=== PATIENT | male | born 1955 | race Hispanic/Latino ===

== ENCOUNTER 2018-08-03 21:47 | Inpatient (IN) | payer SELFPAY ==
[2018-08-03 23:46] LABS: Basophils % (Auto) 0.5 % (0.0-1.8); Eosinophils % (Auto) 1.2 % (0.0-4.3); Hematocrit 40.1 % (35.5-45.6); Hemoglobin 14.1 gm/dl (11.8-15.2); Lymphocytes % (Auto) 29.1 % (13.4-35.0); Mean Corpuscular HGB Conc 35 % (32-34); Mean Corpuscular Hemoglobin 37 pg (28-32); Mean Corpuscular Volume 104 fl (84-94); Monocytes # (Auto) 0.3 K/mm3 (0.0-0.8); Red Blood Count 3.86 M/mm3 (3.65-5.03); Red Cell Distribution Width 17.8 % (13.2-15.2)
[2018-08-03 23:48] LABS: Platelet Count 44 K/mm3 (140-440)
[2018-08-04 00:04] LABS: INR 1.73 (0.87-1.13); Partial Thromboplastin Time 36.2 Sec. (24.2-36.6)
[2018-08-04 00:09] LABS: Alanine Aminotransferase 44 units/L (7-56); Albumin 3.3 g/dL (3.9-5); BUN/Creatinine Ratio 9; Blood Urea Nitrogen 9 mg/dL (9-20); Calcium 7.9 mg/dL (8.4-10.2); Hemolysis Index 8
[2018-08-04] MEDS ORDERED: ZOFRAN IV ONE (07:08)
[2018-08-04] MEDS ORDERED: MORPHINE IV ONE (07:08)
[2018-08-04] MEDS ORDERED: VANCOMYCIN/NS 1 GM/250 ML 1 GM/250 ML BAG IV ONE (07:08)
[2018-08-04] MEDS ORDERED: PROVENTIL IH ONE (07:09)
[2018-08-04] MEDS ORDERED: NACL 0.9% 1000 ML 1,000 ML IV ONE (07:09)
--- NOTE | 2018-08-04 07:14 | Emergency Department Report ---
ED Extremity Problem HPI - General Chief complaint: Extremity Injury, Lower Stated complaint: SWOLLEN LT LEG Time Seen by Provider: 08/04/18 07:00 Source: patient Mode of arrival: Ambulatory Limitations: No Limitations - History of Present Illness Initial comments: Patient is 63 years old male with history of hypertension, borderline diabetes, COPD and GERD. Patient is also a heavy smoker. Patient presented to the ER complaining of left leg pain and swelling from mid leg down to the foot. Patient stated that he have the swelling and the taking the collar for approximately one year now but for the last 5 days the swelling became more and became more red and warm to touch and the pain is getting worse. Patient denied any weakness or numbness or tingling sensation. Patient also denied any fever, nausea or vomiting. MD Complaint: extremity pain, extremity swelling Severity scale (0 -10): 10 - Related Data Home Medications Medication Instructions Recorded Confirmed Last Taken Eliquis 15 mg PO BID 08/03/18 08/03/18 Unknown Gabapentin 600 mg PO BID 08/03/18 08/03/18 Unknown HCTZ 25 mg PO DAILY 08/03/18 08/03/18 Unknown Tylenol /Codeine # 3 tab 1 tab PO BID PRN 08/03/18 08/03/18 Unknown Allergies Allergy/AdvReac Type Severity Reaction Status Date / Time aspirin Allergy Hives Verified 08/03/18 23:26 Penicillins Allergy Itching Verified 08/03/18 23:26 ED Review of Systems ROS: Stated complaint: SWOLLEN LT LEG Other details as noted in HPI Comment: All other systems reviewed and negative Constitutional: denies: chills, fever Respiratory: cough, shortness of breath, wheezing. denies: orthopnea, SOB with exertion, SOB at rest, stridor Cardiovascular: denies: chest pain, palpitations Gastrointestinal: denies: abdominal pain, nausea, vomiting, diarrhea, constipation, hematemesis, melena, hematochezia Musculoskeletal: denies: back pain Skin: denies: rash, lesions, change in color, change in hair/nails, pruritus Neurological: denies: headache, weakness, numbness, paresthesias, confusion, abnormal gait, vertigo ED Past Medical Hx - Past Medical History Hx Hypertension: Yes Hx GERD: Yes Hx Arthritis: Yes Hx COPD: Yes Additional medical history: Chronic Cellulitis left lower leg - Surgical History Past Surgical History?: No - Social History Smoking Status: Current Every Day Smoker Substance Use Type: None - Medications Home Medications: Home Medications Medication Instructions Recorded Confirmed Last Taken Type Eliquis 15 mg PO BID 08/03/18 08/03/18 Unknown History Gabapentin 600 mg PO BID 08/03/18 08/03/18 Unknown History HCTZ 25 mg PO DAILY 08/03/18 08/03/18 Unknown History Tylenol /Codeine # 3 tab 1 tab PO BID PRN 08/03/18 08/03/18 Unknown History ED Physical Exam - General Limitations: No Limitations General appearance: alert, in no apparent distress - Head Head exam: Present: atraumatic, normocephalic, normal inspection - Eye Eye exam: Present: normal appearance, PERRL - ENT ENT exam: Present: normal exam, normal orophraynx, mucous membranes moist - Neck Neck exam: Present: normal inspection, full ROM. Absent: tenderness, meningismus, lymphadenopathy, thyromegaly - Respiratory Respiratory exam: Present: wheezes, rhonchi. Absent: respiratory distress, rales, stridor, accessory muscle use, decreased breath sounds, prolonged expiratory - Cardiovascular Cardiovascular Exam: Present: regular rate, normal rhythm, normal heart sounds - GI/Abdominal GI/Abdominal exam: Present: soft, normal bowel sounds. Absent: distended, tenderness, guarding, rebound, rigid - Expanded Lower Extremity Exam Left Hip exam: Present: normal inspection, full ROM Upper Leg exam: Present: normal inspection, full ROM Lower Leg exam: Present: tenderness, swelling, erythema. Absent: laceration, ecchymosis, deformity, crepidus, dislocation, palpable cord, Ji's sign Ankle exam: Present: tenderness, swelling, erythema Foot/Toe exam: Present: tenderness, swelling, erythema Neuro vascular tendon exam: Present: pulse deficit (decrease popliteal, tibialis posterior and dorsalis pedis pulses), abnormal cap refill ED Course Vital Signs 08/03/18 08/04/18 08/04/18 23:17 06:21 07:10 Temperature 98.7 F 98.8 F 98.6 F Pulse Rate 69 70 74 Pulse Rate [ Anterior Bilateral Throughout] Respiratory 18 18 18 Rate Respiratory Rate [Anterior Bilateral Throughout] Blood Pressure 117/48 Blood Pressure 125/54 115/56 [Left] O2 Sat by Pulse 97 98 97 Oximetry 09/08/04/18 08/04/18 08:03 08:35 08:49 Temperature Pulse Rate Pulse Rate [ 72 88 Anterior Bilateral Throughout] Respiratory Rate Respiratory 20 20 Rate [Anterior Bilateral Throughout] Blood Pressure Blood Pressure [Left] O2 Sat by Pulse 94 Oximetry 08/04/18 09:00 Temperature 98.9 F Pulse Rate Pulse Rate [ Anterior Bilateral Throughout] Respiratory Rate Respiratory Rate [Anterior Bilateral Throughout] Blood Pressure Blood Pressure [Left] O2 Sat by Pulse Oximetry ED Medical Decision Making - Lab Data Result diagrams: 08/03/18 23:35 08/03/18 23:35 - Radiology Data Radiology results: report reviewed LLE VENOUS DUPLEX COMPLETED. VAS LAB PRELIMINARY REPORT; NO EVIDENCE OF DVT NOTED IN VESSELS/SEGMENTS EXAMINED. PER MD REQUEST, NOTED FLOW IN DST CREATIVE ENGAGEMENT DIRECTOR, PERONEAL ART'.S. PHYSICIANS REPORT TO FOLLOW...(RSK) - Medical Decision Making I discussed the patient is Dr. Junior , advised to admit the patient to Dr. Abraham. Critical Care Time: Yes Critical care time in (mins) excluding proc time.: 30 Critical care attestation.: If time is entered above; I have spent that time in minutes in the direct care of this critically ill patient, excluding procedure time. ED Disposition Clinical Impression: Left leg cellulitis, Hypokalemia Disposition: OP ADMIT IP TO THIS HOSP Is pt being admited?: Yes Condition: Stable Referrals: PRIMARY CARE, [Primary Care Provider] - 3-5 Days
--- NOTE | 2018-08-04 11:20 | History and Physical Report ---
History of Present Illness Date of examination: 08/04/18 Date of admission: 08/04/18 Chief complaint: Left lower extremity swelling redness and tenderness History of present illness: Very pleasant 63-year-old male patient with significant past medical history of lower extremity DVT, COPD, hypertension, ongoing tobacco use, on anticoagulation for old DVT presented to the emergency room with left lower extremity swelling and redness tenderness for the last 34 months worse since last 5 days Eyes any fever, no nausea vomiting abdominal pain Denies trauma Past History Past Medical History: COPD, DVT (history of DVT), GERD, hypertension, other ( chronic cellulitis left lower extremity) Past Surgical History: No surgical history Social history: lives with family, smoking (half to one packet per day for many years), alcohol abuse (occasional alcohol use), other (denies recreational drug use). denies: prescription drug abuse Family history: hypertension Medications and Allergies Allergies Allergy/AdvReac Type Severity Reaction Status Date / Time aspirin Allergy Hives Verified 08/03/18 23:26 Penicillins Allergy Itching Verified 08/03/18 23:26 Home Medications Medication Instructions Recorded Confirmed Last Taken Type Eliquis 15 mg PO BID 08/03/18 08/03/18 Unknown History Gabapentin 600 mg PO BID 08/03/18 08/03/18 Unknown History HCTZ 25 mg PO DAILY 08/03/18 08/03/18 Unknown History Tylenol /Codeine # 3 tab 1 tab PO BID PRN 08/03/18 08/03/18 Unknown History Active Meds: Active Medications Potassium Chloride (Kcl 10meq/100ml) 10 meq in 100 mls @ 100 mls/hr IV Q1H PARUL Stop: 08/04/18 12:59 Sodium Chloride (Nacl 0.9% 1000 Ml) 1,000 mls @ 100 mls/hr IV DIRECT PARUL Vancomycin HCl (Vancomycin/Ns 1 Gm/250 Ml) 1 gm in 250 mls @ 166.667 mls/hr IV Q12H PARUL Piperacillin Sod/Tazobactam Sod (Zosyn/Ns 4.5gm/100ml) 4.5 gm in 100 mls @ 200 mls/hr IV Q8HR PARUL; Protocol Review of Systems Constitutional: no weight loss, no weight gain Ears, nose, mouth and throat: no nasal congestion, no nasal discharge Cardiovascular: no chest pain, no orthopnea, no palpitations Respiratory: no cough, no shortness of breath Genitourinary Male: no dysuria, no hematuria Musculoskeletal: other (mellitus left lower extremity, redness and swelling) Integumentary: color changes, no rash, no lesions Neurological: no weakness, no tingling, no seizures Psychiatric: no anxiety, no depression Endocrine: no cold intolerance, no heat intolerance, no polydipsia, no polyuria Hematologic/Lymphatic: no easy bruising, no easy bleeding Allergic/Immunologic: no urticaria, no allergic rhinitis Exam - Constitutional Vitals: Temp Pulse Resp BP Pulse Ox 98.9 F 88 20 95/35 93 08/04/18 09:00 08/04/18 08:35 08/04/18 08:35 08/04/18 10:00 08/04/18 10:00 General appearance: Present: no acute distress, well-nourished - EENT Eyes: Present: PERRL, EOM intact - Neck Neck: Present: supple, normal ROM - Respiratory Respiratory effort: normal Respiratory: negative: rales, rhonchi, wheezing - Cardiovascular Rhythm: regular Heart Sounds: Present: S1 & S2 - Extremities Extremities: no ischemia, No edema Extremity abnormal: erythema (left lower extremity), tenderness (left lower extremity), other (swelling) - Abdominal General gastrointestinal: Present: soft, non-tender, non-distended, normal bowel sounds - Integumentary Integumentary: Present: clear, warm - Musculoskeletal Musculoskeletal: strength equal bilaterally, generalized weakness - Psychiatric Psychiatric: appropriate mood/affect, cooperative - Neurologic Neurologic: CNII-XII intact, moves all extremities Results - Labs CBC & Chem 7: 08/06/18 04:34 08/06/18 04:34 Labs: Abnormal lab results 08/03/18 08/03/18 08/03/18 Range/Units 23:35 23:35 23:35 WBC 3.4 L (4.5-11.0) K/mm3 MCV 104 H (84-94) fl MCH 37 H (28-32) pg MCHC 35 H (32-34) % RDW 17.8 H (13.2-15.2) % Plt Count 44 L (140-440) K/mm3 [place] % (Auto) 8.0 H (0.0-7.3) % Lymph # 1.0 L (1.2-5.4) K/mm3 PT 20.8 H (12.2-14.9) Sec. INR 1.73 H (0.87-1.13) Potassium 2.9 L* (3.6-5.0) mmol/L Calcium 7.9 L (8.4-10.2) mg/dL Total Bilirubin 2.50 H (0.1-1.2) mg/dL AST 99 H (5-40) units/L Albumin 3.3 L (3.9-5) g/dL Assessment and Plan --Left lower extremity cellulitis; Elevate the limb, IV antibiotics Vanco and Levaquin Cultures, consider ID evaluation if needed --Severe hypokalemia; Replaced in the ER, check potassium levels and adjust as needed --Hypomagnesemia; replaced with magnesium sulfate --Severe thrombocytopenia; unknown etiology Closely monitor, no evidence of bleeding, consider hematology consult --Neutropenia; unknown etiology, closely monitor We'll consult hematology if needed --Coagulopathy; INR 1.73, patient reports he is on anticoagulation with the requests Closely monitor, watch for bleeding in the setting of thrombocytopenia and coagulopathy --Transaminitis; probably secondary to alcohol use Closely monitor, GI evaluation if needed --Possible alcoholic liver disease; with elevated transaminases and bilirubin Closely monitor --Chronic alcohol use; counseling done patient strongly advised to quit alcohol intake --Alcohol withdrawal symptoms; currently patient does not have withdrawal symptoms, closely monitor Initiate CIWA protocol as needed --Moderate hypoalbuminemia; moderate malnutrition Nutrition supplements and supportive care, nutrition consult if needed --DVT prophylaxis; no pharmacologic anticoagulation in view of severe thrombocytopenia, SCDs Closely monitor the patient and adjust management as needed Plan of care is reviewed with the patient and his nurse I spent total 35 minutes coordinating patient care -
[2018-08-04] MEDS: KCL 10MEQ/100ML 10 MEQ/100 ML BAG IV SCH ×2 (11:24→13:34)
[2018-08-04 11:38] LABS: Hematocrit 33.7 % (35.5-45.6); Hemoglobin 11.9 gm/dl (11.8-15.2); Mean Corpuscular HGB Conc 35 % (32-34); Mean Corpuscular Hemoglobin 37 pg (28-32); Mean Corpuscular Volume 104 fl (84-94); Platelet Count 35 K/mm3 (140-440); Red Blood Count 3.25 M/mm3 (3.65-5.03); Red Cell Distribution Width 17.5 % (13.2-15.2)
[2018-08-04] MEDS ORDERED: VANCOMYCIN/NS 1 GM/250 ML 1 GM/250 ML BAG IV SCH (12:00)
[2018-08-04 12:17] LABS: Total Cells Counted 100
[2018-08-04 12:18] LABS: Basophils % (Manual) 0 % (0.0-1.8); Eosinophils % (Manual) 0 % (0.0-4.3)
[2018-08-04 12:19] LABS: Anisocytosis Few; Platelet Estimate Appears Decreased
[2018-08-04 12:21] LABS: Poikilocytosis Few
[2018-08-04] MEDS ORDERED: ZOSYN/NS 4.5GM/100ML 4.5 GM/100 ML VIAL IV SCH (14:00)
[2018-08-04] MEDS ORDERED: VANCOMYCIN 1,500 MG in NACL 0.9% 500 ML 500 ML IV ONE (16:00)
[2018-08-04] MEDS ORDERED: ATIVAN IV PRN (17:46)
[2018-08-04 18:25] LABS: BUN/Creatinine Ratio 14; Blood Urea Nitrogen 11 mg/dL (9-20); Calcium 7.5 mg/dL (8.4-10.2); Hemolysis Index 5
[2018-08-04] MEDS: CLEOCIN PO SCH ×2 (18:30→21:22)
[2018-08-04] MEDS: K-DUR PO SCH (21:20)
[2018-08-05] MEDS: K-DUR PO SCH (00:24)
[2018-08-05] MEDS: VANCOMYCIN 1,250 MG in NACL 0.9% 250ML 250 ML IV SCH ×2 (03:55→17:17)
[2018-08-05 06:05] LABS: Mean Corpuscular HGB Conc 34 % (32-34); Mean Corpuscular Hemoglobin 36 pg (28-32); Mean Corpuscular Volume 106 fl (84-94); Red Blood Count 3.31 M/mm3 (3.65-5.03); Red Cell Distribution Width 18.1 % (13.2-15.2)
[2018-08-05 06:09] LABS: Platelet Count 36 K/mm3 (140-440)
[2018-08-05 06:29] LABS: BUN/Creatinine Ratio 11; Blood Urea Nitrogen 9 mg/dL (9-20); Calcium 7.1 mg/dL (8.4-10.2); Hemolysis Index 3
[2018-08-05 07:44] LABS: Basophils % (Manual) 0 % (0.0-1.8); Eosinophils % (Manual) 0 % (0.0-4.3); Total Cells Counted 100
[2018-08-05 07:45] LABS: Platelet Estimate Appears Decreased
[2018-08-05 07:46] LABS: Anisocytosis Few; Macrocytosis Few; Ovalocytes Few; Poikilocytosis Few
--- NOTE | 2018-08-05 07:50 | Progress Note ---
Assessment and Plan Assessment and plan: --Severe thrombocytopenia; Probably alcohol related Closely monitor, no evidence of bleeding, consult oncall hematology ---Leukopenia; unknown etiology, closely monitor We'll consult hematology,neutrophil count pending --Left lower extremity cellulitis; Elevate the limb, IV antibiotics Vanco and Levaquin Cultures, consider ID evaluation if needed --Severe hypokalemia; Replaced in the ER, check potassium levels and adjust as needed --Hypomagnesemia; replaced with magnesium sulfate --Coagulopathy; INR 1.73, patient reports he is on anticoagulation with Eliquis Probably due to alcohol liver disease. --Transaminitis; probably secondary to alcohol use Closely monitor, GI evaluation if needed --Chronic alcohol use; counseling done patient strongly advised to quit alcohol intake --Alcohol withdrawal symptoms; currently patient does not have withdrawal symptoms, closely monitor Initiate CIWA protocol as needed --Moderate hypoalbuminemia; moderate malnutrition Nutrition supplements and supportive care, nutrition consult if needed --DVT prophylaxis; no pharmacologic anticoagulation in view of severe thrombocytopenia, SCDs Closely monitor the patient and adjust management as needed Plan of care is reviewed with the patient and his nurse I spent total 15 minutes coordinating patient care - History Interval history: Patient seen and examined medical records reviewed Feels slightly better Complaints of lower extremity pain Alert awake oriented 3 Vital signs reviewed Hospitalist Physical - Constitutional Vitals: Temp Pulse Resp BP Pulse Ox 99.0 F 74 18 124/66 93 08/05/18 05:28 08/05/18 05:28 08/05/18 05:28 08/05/18 05:28 08/05/18 05:28 General appearance: Present: no acute distress, well-nourished - EENT Eyes: Present: PERRL, EOM intact - Neck Neck: Present: supple, normal ROM - Respiratory Respiratory effort: normal Respiratory: bilateral: diminished, negative: rales, rhonchi, wheezing - Cardiovascular Rhythm: regular Heart Sounds: Present: S1 & S2 - Extremities Extremities: no ischemia, No edema - Abdominal General gastrointestinal: soft, non-tender, non-distended, normal bowel sounds - Integumentary Integumentary: Present: clear, warm - Psychiatric Psychiatric: appropriate mood/affect, cooperative - Neurologic Neurologic: CNII-XII intact, moves all extremities Results - Labs CBC & Chem 7: 08/06/18 04:34 08/06/18 04:34 Labs: Laboratory Last Values WBC 1.7 K/mm3 (4.5-11.0) L* 08/05/18 04:29 RBC 3.31 M/mm3 (3.65-5.03) L 08/05/18 04:29 Hgb 12.0 gm/dl (11.8-15.2) 08/05/18 04:29 Hct 35.0 % (35.5-45.6) L 08/05/18 04:29 MCV 106 fl (84-94) H 08/05/18 04:29 MCH 36 pg (28-32) H 08/05/18 04:29 MCHC 34 % (32-34) 08/05/18 04:29 RDW 18.1 % (13.2-15.2) H 08/05/18 04:29 Plt Count 36 K/mm3 (140-440) L 08/05/18 04:29 Lymph % (Auto) 29.1 % (13.4-35.0) 08/03/18 23:35 Piatt % (Auto) 8.0 % (0.0-7.3) H 08/03/18 23:35 Eos % (Auto) 1.2 % (0.0-4.3) 08/03/18 23:35 Baso % (Auto) 0.5 % (0.0-1.8) 08/03/18 23:35 Lymph # 1.0 K/mm3 (1.2-5.4) L 08/03/18 23:35 Piatt # 0.3 K/mm3 (0.0-0.8) 08/03/18 23:35 Eos # 0.0 K/mm3 (0.0-0.4) 08/03/18 23:35 Baso # 0.0 K/mm3 (0.0-0.1) 08/03/18 23:35 Add Manual Diff Complete 08/04/18 11:25 Total Counted 100 08/04/18 11:25 Seg Neutrophils % Domestic Cleaner 08/05/18 04:29 Seg Neuts % (Manual) 65.0 % (40.0-70.0) 08/04/18 11:25 Band Neutrophils % 0 % 08/04/18 11:25 Lymphocytes % (Manual) 26.0 % (13.4-35.0) 08/04/18 11:25 Reactive Lymphs % (Man) 0 % 08/04/18 11:25 Monocytes % (Manual) 9.0 % (0.0-7.3) H 08/04/18 11:25 Eosinophils % (Manual) 0 % (0.0-4.3) 08/04/18 11:25 Basophils % (Manual) 0 % (0.0-1.8) 08/04/18 11:25 Metamyelocytes % 0 % 08/04/18 11:25 Myelocytes % 0 % 08/04/18 11:25 Promyelocytes % 0 % 08/04/18 11:25 Blast Cells % 0 % 08/04/18 11:25 Nucleated RBC % Not Reportable 08/04/18 11:25 Seg Neutrophils # 2.1 K/mm3 (1.8-7.7) 08/03/18 23:35 Seg Neutrophils # Man 1.4 K/mm3 (1.8-7.7) L 08/04/18 11:25 Band Neutrophils # 0.0 K/mm3 08/04/18 11:25 Lymphocytes # (Manual) 0.5 K/mm3 (1.2-5.4) L 08/04/18 11:25 Abs React Lymphs (Man) 0.0 K/mm3 08/04/18 11:25 Monocytes # (Manual) 0.2 K/mm3 (0.0-0.8) 08/04/18 11:25 Eosinophils # (Manual) 0.0 K/mm3 (0.0-0.4) 08/04/18 11:25 Basophils # (Manual) 0.0 K/mm3 (0.0-0.1) 08/04/18 11:25 Metamyelocytes # 0.0 K/mm3 08/04/18 11:25 Myelocytes # 0.0 K/mm3 08/04/18 11:25 Promyelocytes # 0.0 K/mm3 08/04/18 11:25 Blast Cells # 0.0 K/mm3 08/04/18 11:25 WBC Morphology Not Reportable 08/04/18 11:25 Hypersegmented Neuts Not Reportable 08/04/18 11:25 Hyposegmented Neuts Not Reportable 08/04/18 11:25 Hypogranular Neuts Not Reportable 08/04/18 11:25 Smudge Cells Not Reportable 08/04/18 11:25 Toxic Granulation Not Reportable 08/04/18 11:25 Toxic Vacuolation Not Reportable 08/04/18 11:25 Dohle Bodies Not Reportable 08/04/18 11:25 Pelger-Huet Anomaly Not Reportable 08/04/18 11:25 Mago Rods Not Reportable 08/04/18 11:25 Platelet Estimate Appears decreased 08/04/18 11:25 Clumped Platelets Not Reportable 08/04/18 11:25 Plt Clumps, EDTA Not Reportable 08/04/18 11:25 Large Platelets Not Reportable 08/04/18 11:25 Giant Platelets Not Reportable 08/04/18 11:25 Platelet Satelliting Not Reportable 08/04/18 11:25 Plt Morphology Comment Not Reportable 08/04/18 11:25 RBC Morphology Not Reportable 08/04/18 11:25 Dimorphic RBCs Not Reportable 08/04/18 11:25 Polychromasia Not Reportable 08/04/18 11:25 Hypochromasia Not Reportable 08/04/18 11:25 Poikilocytosis Few 08/04/18 11:25 Anisocytosis Few 08/04/18 11:25 Microcytosis Rare 08/04/18 11:25 Macrocytosis Not Reportable 08/04/18 11:25 Spherocytes Not Reportable 08/04/18 11:25 Pappenheimer Bodies Not Reportable 08/04/18 11:25 Sickle Cells Not Reportable 08/04/18 11:25 Target Cells Not Reportable 08/04/18 11:25 Tear Drop Cells Not Reportable 08/04/18 11:25 Ovalocytes Not Reportable 08/04/18 11:25 Helmet Cells Not Reportable 08/04/18 11:25 Azul-[place] Bodies Not Reportable 08/04/18 11:25 [place] Rings Not Reportable 08/04/18 11:25 Hussain Cells Not Reportable 08/04/18 11:25 Bite Cells Not Reportable 08/04/18 11:25 Crenated Cell Not Reportable 08/04/18 11:25 Elliptocytes Not Reportable 08/04/18 11:25 Acanthocytes (Spur) Not Reportable 08/04/18 11:25 Rouleaux Not Reportable 08/04/18 11:25 Hemoglobin C Crystals Not Reportable 08/04/18 11:25 Schistocytes Not Reportable 08/04/18 11:25 Malaria parasites Not Reportable 08/04/18 11:25 Ahmet Bodies Not Reportable 08/04/18 11:25 Hem Pathologist Commnt No 08/04/18 11:25 PT 20.8 Sec. (12.2-14.9) H 08/03/18 23:35 INR 1.73 (0.87-1.13) H 08/03/18 23:35 APTT 36.2 Sec. (24.2-36.6) 08/03/18 23:35 Sodium 137 mmol/L (137-145) 08/05/18 04:29 Potassium 3.9 mmol/L (3.6-5.0) D 08/05/18 04:29 Chloride 106.0 mmol/L (98-107) 08/05/18 04:29 Carbon Dioxide 21 mmol/L (22-30) L 08/05/18 04:29 Anion Gap 14 mmol/L 08/05/18 04:29 BUN 9 mg/dL (9-20) 08/05/18 04:29 Creatinine 0.8 mg/dL (0.8-1.5) 08/05/18 04:29 Estimated GFR > 60 ml/min 08/05/18 04:29 BUN/Creatinine Ratio 11 % 08/05/18 04:29 Glucose 80 mg/dL (75-100) 08/05/18 04:29 Calcium 7.1 mg/dL (8.4-10.2) L 08/05/18 04:29 Phosphorus 2.10 mg/dL (2.5-4.5) L 08/05/18 04:29 Magnesium 1.60 mg/dL (1.7-2.3) L 08/05/18 04:29 Total Bilirubin 2.50 mg/dL (0.1-1.2) H 08/03/18 23:35 AST 99 units/L (5-40) H 08/03/18 23:35 ALT 44 units/L (7-56) 08/03/18 23:35 Alkaline Phosphatase 125 units/L (35-129) 08/03/18 23:35 Total Protein 7.2 g/dL (6.3-8.2) 08/03/18 23:35 Albumin 3.3 g/dL (3.9-5) L 08/03/18 23:35 Albumin/Globulin Ratio 0.8 % 08/03/18 23:35
[2018-08-05] MEDS: NACL 0.9% 1000 ML 1,000 ML IV SCH ×2 (07:53→17:26)
[2018-08-05] MEDS ORDERED: MAGNESIUM SULFATE 2GM/50ML 2 GM/50 ML BAG IV ONE (09:00)
[2018-08-05] MEDS: VITAMIN B-1 PO SCH (10:00)
[2018-08-05] MEDS: FOLVITE PO SCH (10:01)
[2018-08-05] MEDS: CLEOCIN PO SCH ×4 (10:01→21:59)
[2018-08-05] MEDS: PERCOCET 5/325 PO PRN (11:05)
--- NOTE | 2018-08-05 13:13 | Hem/Onc Consultation ---
History of Present Illness - Reason for Consult Consult date: 08/05/18 - History of Present Illness Patient states he has cardiac history requiring anticoagulants in longterm. He was in longterm for 7 years and was on anticoagulants for 4 years. His discharge papers donot mention DVT or Afib. Has history of alcoholism and possible cirrhosis with low blood counts. No history of bleeding. He deniess any history of DVt or PE. Past History Past Medical History: COPD, DVT (history of DVT), GERD, hypertension, other ( chronic cellulitis left lower extremity) Past Surgical History: No surgical history Social history: lives with family, smoking (half to one packet per day for many years), alcohol abuse (occasional alcohol use), other (denies recreational drug use). denies: prescription drug abuse Family history: hypertension Medications and Allergies Allergies Allergy/AdvReac Type Severity Reaction Status Date / Time aspirin Allergy Hives Verified 08/03/18 23:26 Penicillins Allergy Itching Verified 08/03/18 23:26 Home Medications Medication Instructions Recorded Confirmed Last Taken Type Eliquis 15 mg PO BID 08/03/18 08/03/18 Unknown History Gabapentin 600 mg PO BID 08/03/18 08/03/18 Unknown History HCTZ 25 mg PO DAILY 08/03/18 08/03/18 Unknown History Tylenol /Codeine # 3 tab 1 tab PO BID PRN 08/03/18 08/03/18 Unknown History Active Meds: Active Medications Clindamycin HCl (Cleocin) 300 mg PO QID REPLACED BY [facility] Last Admin: 08/05/18 10:01 Dose: 300 mg Folic Acid (Folvite) 1 mg PO QDAY REPLACED BY [facility] Last Admin: 08/05/18 10:01 Dose: 1 mg Sodium Chloride (Nacl 0.9% 1000 Ml) 1,000 mls @ 100 mls/hr IV DIRECT REPLACED BY [facility] Last Admin: 08/05/18 07:53 Dose: 100 mls/hr Vancomycin HCl 1,250 mg/ (Sodium Chloride) 275 mls @ 166.667 mls/hr IV Q12H REPLACED BY [facility] Last Admin: 08/05/18 03:55 Dose: 166.667 mls/hr Lorazepam (Ativan) 2 mg IV Q4H PRN PRN Reason: Agitation Oxycodone/Acetaminophen (Percocet 5/325) 1 tab PO Q6H PRN PRN Reason: Pain, Moderate (4-6) Last Admin: 08/05/18 11:05 Dose: 1 tab Thiamine HCl (Vitamin B-1) 100 mg PO QDAY PARUL Last Admin: 08/05/18 10:00 Dose: 100 mg Review of Systems All systems: negative Constitutional: fatigue Exam - Constitutional Vitals: Last Vital Signs Temp 99.0 F 08/05/18 05:28 Pulse 74 08/05/18 05:28 Resp 18 08/05/18 12:05 BP 124/66 08/05/18 05:28 Pulse Ox 93 08/05/18 05:28 - EENT Eyes: PERRL ENT: hearing intact Lymph node exam: negative cervical - Respiratory Respiratory: bilateral: CTA, diminished, rales, rhonchi, wheezing, other - Cardiovascular Rhythm: regular Heart Sounds: Present: S1 & S2 - Gastrointestinal General gastrointestinal: Present: soft Results - Labs lab Results: Laboratory Results - last 24 hr 08/04/18 08/05/18 08/05/18 17:59 04:29 04:29 WBC 1.7 L* RBC 3.31 L Hgb 12.0 Hct 35.0 L MCV 106 H MCH 36 H MCHC 34 RDW 18.1 H Plt Count 36 L Add Manual Diff Complete Total Counted 100 Seg Neutrophils % Group Work Program Aide Seg Neuts % (Manual) 66.0 Band Neutrophils % 0 Lymphocytes % (Manual) 28.0 Reactive Lymphs % (Man) 0 Monocytes % (Manual) 6.0 Eosinophils % (Manual) 0 Basophils % (Manual) 0 Metamyelocytes % 0 Myelocytes % 0 Promyelocytes % 0 Blast Cells % 0 Nucleated RBC % 1.0 H Seg Neutrophils # Man 1.1 L Band Neutrophils # 0.0 Lymphocytes # (Manual) 0.5 L Abs React Lymphs (Man) 0.0 Monocytes # (Manual) 0.1 Eosinophils # (Manual) 0.0 Basophils # (Manual) 0.0 Metamyelocytes # 0.0 Myelocytes # 0.0 Promyelocytes # 0.0 Blast Cells # 0.0 WBC Morphology Not Reportable Hypersegmented Neuts Not Reportable Hyposegmented Neuts Not Reportable Hypogranular Neuts Not Reportable Smudge Cells Not Reportable Toxic Granulation Not Reportable Toxic Vacuolation Not Reportable Dohle Bodies Not Reportable Pelger-Huet Anomaly Not Reportable Mago Rods Not Reportable Platelet Estimate Appears decreased Clumped Platelets Not Reportable Plt Clumps, EDTA Not Reportable Large Platelets Not Reportable Giant Platelets Not Reportable Platelet Satelliting Not Reportable Plt Morphology Comment Not Reportable RBC Morphology Not Reportable Dimorphic RBCs Not Reportable Polychromasia Not Reportable Hypochromasia Not Reportable Poikilocytosis Few Anisocytosis Few Microcytosis Rare Macrocytosis Few Spherocytes Not Reportable Pappenheimer Bodies Not Reportable Sickle Cells Not Reportable Target Cells Not Reportable Tear Drop Cells Not Reportable Ovalocytes Few Helmet Cells Not Reportable Azul-[place] Bodies Not Reportable [place] Rings Not Reportable [place] Cells Not Reportable Bite Cells Not Reportable Crenated Cell Not Reportable Elliptocytes Rare Acanthocytes (Spur) Not Reportable Rouleaux Not Reportable Hemoglobin C Crystals Not Reportable Schistocytes Not Reportable Malaria parasites Not Reportable Ahmet Bodies Not Reportable Hem Pathologist Commnt No Sodium 138 137 Potassium 3.1 L 3.9 D Chloride 104.5 106.0 Carbon Dioxide 24 21 L Anion Gap 13 14 BUN 11 9 Creatinine 0.8 0.8 Estimated GFR > 60 > 60 BUN/Creatinine Ratio 14 11 Glucose 92 80 Calcium 7.5 L 7.1 L Phosphorus 2.10 L Magnesium 1.60 L Assessment and Plan - Patient Problems (1) Left leg cellulitis Current Visit: Yes Status: Acute Plan to address problem: Would monitor his counts. Would refer cardiology for reason for eliquis ? Also requires GI for history of cirrhosis. He requires outpatient follow up. he agrees. Compliance stressed.
[2018-08-06] MEDS: VANCOMYCIN 1,250 MG in NACL 0.9% 250ML 250 ML IV SCH ×2 (04:10→18:16)
[2018-08-06] MEDS: NACL 0.9% 1000 ML 1,000 ML IV SCH ×2 (04:12→18:17)
[2018-08-06 05:25] LABS: Hematocrit 35.3 % (35.5-45.6); Hemoglobin 12.2 gm/dl (11.8-15.2); Mean Corpuscular HGB Conc 35 % (32-34); Mean Corpuscular Hemoglobin 36 pg (28-32); Mean Corpuscular Volume 105 fl (84-94); Red Blood Count 3.35 M/mm3 (3.65-5.03); Red Cell Distribution Width 18.4 % (13.2-15.2)
[2018-08-06 05:41] LABS: BUN/Creatinine Ratio 13; Blood Urea Nitrogen 8 mg/dL (9-20); Calcium 7.3 mg/dL (8.4-10.2); Hemolysis Index 22
[2018-08-06 05:51] LABS: Platelet Count 34 K/mm3 (140-440)
[2018-08-06 08:02] LABS: Basophils % (Manual) 0 % (0.0-1.8); Poikilocytosis 1+; Tear Drop Cells Few; Total Cells Counted 100
[2018-08-06 08:03] LABS: Platelet Estimate Consistent w Auto
[2018-08-06] MEDS: FOLVITE PO SCH (09:00)
[2018-08-06] MEDS: VITAMIN B-1 PO SCH (09:00)
[2018-08-06] MEDS: PERCOCET 5/325 PO PRN ×2 (09:00→22:15)
[2018-08-06] MEDS: CLEOCIN PO SCH ×4 (09:00→22:16)
--- NOTE | 2018-08-06 09:10 | Hem/Onc Progress Note ---
Assessment and Plan Platelets are low. Patient is high risk for bleeding. Agree with stopping anticoagulants. May need cardiology evaluation since patient states he had some issues with the heart that he thinks he was on anticoagulants for Neutropenia secondary to infection and liver disease. Continue to watch. Continue antibiotics. Subjective Date of service: 08/06/18 Interval history: Patient feels fair. Denies any active bleeding. Objective - Constitutional Vitals: Last Vital Signs Temp 97.7 F 08/06/18 06:18 Pulse 66 08/06/18 08:54 Resp 16 08/06/18 06:18 BP 134/73 08/06/18 06:18 Pulse Ox 96 08/06/18 06:18 General appearance: no acute distress Performance status: 3-limited selfcare - Neck Neck: supple - Respiratory Respiratory effort: Positive: normal Respiratory: bilateral: CTA - Cardiovascular Rhythm: regular Extremities: abnormal (left-sided cellulitis) - Labs Lab Results: Laboratory Results - last 24 hr 08/05/18 08/06/18 08/06/18 20:59 04:34 04:34 WBC 1.6 L* RBC 3.35 L Hgb 12.2 Hct 35.3 L MCV 105 H MCH 36 H MCHC 35 H RDW 18.4 H Plt Count 34 L Add Manual Diff Complete Total Counted 100 Seg Neutrophils % Director Of Residential Services Seg Neuts % (Manual) 38.0 L Band Neutrophils % 0 Lymphocytes % (Manual) 48.0 H Reactive Lymphs % (Man) 0 Monocytes % (Manual) 6.0 Eosinophils % (Manual) 8.0 H Basophils % (Manual) 0 Metamyelocytes % 0 Myelocytes % 0 Promyelocytes % 0 Blast Cells % 0 Nucleated RBC % Not Reportable Seg Neutrophils # Man 0.6 L Band Neutrophils # 0.0 Lymphocytes # (Manual) 0.8 L Abs React Lymphs (Man) 0.0 Monocytes # (Manual) 0.1 Eosinophils # (Manual) 0.1 Basophils # (Manual) 0.0 Metamyelocytes # 0.0 Myelocytes # 0.0 Promyelocytes # 0.0 Blast Cells # 0.0 WBC Morphology Not Reportable Hypersegmented Neuts Not Reportable Hyposegmented Neuts Not Reportable Hypogranular Neuts Not Reportable Smudge Cells Not Reportable Toxic Granulation Not Reportable Toxic Vacuolation Not Reportable Dohle Bodies Not Reportable Pelger-Huet Anomaly Not Reportable Mago Rods Not Reportable Platelet Estimate Consistent w auto Clumped Platelets Not Reportable Plt Clumps, EDTA Not Reportable Large Platelets Not Reportable Giant Platelets Not Reportable Platelet Satelliting Not Reportable Plt Morphology Comment Not Reportable RBC Morphology Not Reportable Dimorphic RBCs Not Reportable Polychromasia Not Reportable Hypochromasia Not Reportable Poikilocytosis 1+ Anisocytosis Not Reportable Microcytosis Not Reportable Macrocytosis Not Reportable Spherocytes Not Reportable Pappenheimer Bodies Not Reportable Sickle Cells Not Reportable Target Cells Not Reportable Tear Drop Cells Few Ovalocytes Not Reportable Helmet Cells Not Reportable Azul-[place] Bodies Not Reportable [place] Rings Not Reportable [place] Cells Not Reportable Bite Cells Not Reportable Crenated Cell Not Reportable Elliptocytes Not Reportable Acanthocytes (Spur) Not Reportable Rouleaux Not Reportable Hemoglobin C Crystals Not Reportable Schistocytes Not Reportable Malaria parasites Not Reportable Ahmet Bodies Not Reportable Hem Pathologist Commnt No Sodium 138 Potassium 3.6 Chloride 109.6 H Carbon Dioxide 19 L Anion Gap 13 BUN 8 L Creatinine 0.6 L Estimated GFR > 60 BUN/Creatinine Ratio 13 Glucose 79 POC Glucose 93 Calcium 7.3 L
--- NOTE | 2018-08-06 14:30 | Vascular Lab Report ---
Left Lower Extremity Venous Duplex Study: Reason for Exam: Pain and swelling of the left lower extremity. Comments on the Right: A limited duplex study was done of the proximal veins of the right lower extremity. All veins visualized are freely compressible without evidence of internal echogenicity. Flow is spontaneous and phasic throughout. No evidence of acute or chronic thrombus is seen in any of the vessels visualized. Comments on the Left: All veins visualized are freely compressible without evidence of internal echogenicity. Flow is spontaneous and phasic throughout. No evidence of acute or chronic thrombus is seen in any of the vessels visualized. Left inguinal adenopathy is noted. Impression: No evidence of acute or chronic deep venous thrombosis in the left lower extremity. Left inguinal adenopathy is noted.
--- NOTE | 2018-08-06 17:27 | Progress Note ---
Assessment and Plan Assessment and plan: --Severe thrombocytopenia; Probably alcohol related Closely monitor, no evidence of bleeding, hematology evaluation noted and appreciated --Leukopenia; significant drop in WBC to 1.6 unknown etiology, closely monitor We'll consult hematology,neutrophil count pending neutropenia precautions --Left lower extremity cellulitis; Elevate the limb, IV antibiotics Vanco and Levaquin Cultures, consider ID evaluation if needed --Severe hypokalemia; corrected --Hypomagnesemia; replaced with magnesium sulfate --Hypophosphatemia; IV K-Phos, closely monitor levels --Coagulopathy; INR 1.73, hold Eliquis[unknown indication] In view of coagulopathy, severe thrombocytopenia --Transaminitis; probably secondary to alcohol use --Chronic alcohol use; counseling,advised to quit alcohol intake --Alcohol withdrawal symptoms; currently patient does not have withdrawal symptoms, closely monitor Initiate CIWA protocol as needed --Moderate hypoalbuminemia; moderate malnutrition Nutrition supplements and supportive care, nutrition consult if needed --DVT prophylaxis; no pharmacologic anticoagulation in view of severe thrombocytopenia, SCDs Closely monitor the patient and adjust management as needed Plan of care is reviewed with the patient and his nurse - History Interval history: Patient seen and examined medical records reviewed No new events reported by the nursing staff Significant drop in WBC, 1.6 Alert awake oriented 3 Vital signs reviewed Hospitalist Physical - Constitutional Vitals: Temp Pulse Resp BP Pulse Ox 97.8 F 58 L 16 137/77 97 08/06/18 13:23 08/06/18 13:23 08/06/18 13:23 08/06/18 13:23 08/06/18 13:23 General appearance: Present: no acute distress, well-nourished - EENT Eyes: Present: PERRL, EOM intact - Neck Neck: Present: supple, normal ROM - Respiratory Respiratory effort: normal Respiratory: bilateral: diminished, negative: rales, rhonchi, wheezing - Cardiovascular Rhythm: regular Heart Sounds: Present: S1 & S2 - Extremities Extremities: no ischemia, pulses intact, abnormal (cellulitis erythema and swelling) - Abdominal General gastrointestinal: soft, non-tender, non-distended, normal bowel sounds - Integumentary Integumentary: Present: clear, warm - Psychiatric Psychiatric: appropriate mood/affect, cooperative - Neurologic Neurologic: CNII-XII intact, moves all extremities Results - Labs CBC & Chem 7: 08/06/18 04:34 08/06/18 04:34 Labs: Laboratory Last Values WBC 1.6 K/mm3 (4.5-11.0) L* 08/06/18 04:34 RBC 3.35 M/mm3 (3.65-5.03) L 08/06/18 04:34 Hgb 12.2 gm/dl (11.8-15.2) 08/06/18 04:34 Hct 35.3 % (35.5-45.6) L 08/06/18 04:34 MCV 105 fl (84-94) H 08/06/18 04:34 MCH 36 pg (28-32) H 08/06/18 04:34 MCHC 35 % (32-34) H 08/06/18 04:34 RDW 18.4 % (13.2-15.2) H 08/06/18 04:34 Plt Count 34 K/mm3 (140-440) L 08/06/18 04:34 Lymph % (Auto) 29.1 % (13.4-35.0) 08/03/18 23:35 [place] % (Auto) 8.0 % (0.0-7.3) H 08/03/18 23:35 Eos % (Auto) 1.2 % (0.0-4.3) 08/03/18 23:35 Baso % (Auto) 0.5 % (0.0-1.8) 08/03/18 23:35 Lymph # 1.0 K/mm3 (1.2-5.4) L 08/03/18 23:35 [place] # 0.3 K/mm3 (0.0-0.8) 08/03/18 23:35 Eos # 0.0 K/mm3 (0.0-0.4) 08/03/18 23:35 Baso # 0.0 K/mm3 (0.0-0.1) 08/03/18 23:35 Add Manual Diff Complete 08/06/18 04:34 Total Counted 100 08/06/18 04:34 Seg Neutrophils % Shipping Clerk Crating 08/06/18 04:34 Seg Neuts % (Manual) 38.0 % (40.0-70.0) L 08/06/18 04:34 Band Neutrophils % 0 % 08/06/18 04:34 Lymphocytes % (Manual) 48.0 % (13.4-35.0) H 08/06/18 04:34 Reactive Lymphs % (Man) 0 % 08/06/18 04:34 Monocytes % (Manual) 6.0 % (0.0-7.3) 08/06/18 04:34 Eosinophils % (Manual) 8.0 % (0.0-4.3) H 08/06/18 04:34 Basophils % (Manual) 0 % (0.0-1.8) 08/06/18 04:34 Metamyelocytes % 0 % 08/06/18 04:34 Myelocytes % 0 % 08/06/18 04:34 Promyelocytes % 0 % 08/06/18 04:34 Blast Cells % 0 % 08/06/18 04:34 Nucleated RBC % Not Reportable 08/06/18 04:34 Seg Neutrophils # 2.1 K/mm3 (1.8-7.7) 08/03/18 23:35 Seg Neutrophils # Man 0.6 K/mm3 (1.8-7.7) L 08/06/18 04:34 Band Neutrophils # 0.0 K/mm3 08/06/18 04:34 Lymphocytes # (Manual) 0.8 K/mm3 (1.2-5.4) L 08/06/18 04:34 Abs React Lymphs (Man) 0.0 K/mm3 08/06/18 04:34 Monocytes # (Manual) 0.1 K/mm3 (0.0-0.8) 08/06/18 04:34 Eosinophils # (Manual) 0.1 K/mm3 (0.0-0.4) 08/06/18 04:34 Basophils # (Manual) 0.0 K/mm3 (0.0-0.1) 08/06/18 04:34 Metamyelocytes # 0.0 K/mm3 08/06/18 04:34 Myelocytes # 0.0 K/mm3 08/06/18 04:34 Promyelocytes # 0.0 K/mm3 08/06/18 04:34 Blast Cells # 0.0 K/mm3 08/06/18 04:34 WBC Morphology Not Reportable 08/06/18 04:34 Hypersegmented Neuts Not Reportable 08/06/18 04:34 Hyposegmented Neuts Not Reportable 08/06/18 04:34 Hypogranular Neuts Not Reportable 08/06/18 04:34 Smudge Cells Not Reportable 08/06/18 04:34 Toxic Granulation Not Reportable 08/06/18 04:34 Toxic Vacuolation Not Reportable 08/06/18 04:34 Dohle Bodies Not Reportable 08/06/18 04:34 Pelger-Huet Anomaly Not Reportable 08/06/18 04:34 Mago Rods Not Reportable 08/06/18 04:34 Platelet Estimate Consistent w auto 08/06/18 04:34 Clumped Platelets Not Reportable 08/06/18 04:34 Plt Clumps, EDTA Not Reportable 08/06/18 04:34 Large Platelets Not Reportable 08/06/18 04:34 Giant Platelets Not Reportable 08/06/18 04:34 Platelet Satelliting Not Reportable 08/06/18 04:34 Plt Morphology Comment Not Reportable 08/06/18 04:34 RBC Morphology Not Reportable 08/06/18 04:34 Dimorphic RBCs Not Reportable 08/06/18 04:34 Polychromasia Not Reportable 08/06/18 04:34 Hypochromasia Not Reportable 08/06/18 04:34 Poikilocytosis 1+ 08/06/18 04:34 Anisocytosis Not Reportable 08/06/18 04:34 Microcytosis Not Reportable 08/06/18 04:34 Macrocytosis Not Reportable 08/06/18 04:34 Spherocytes Not Reportable 08/06/18 04:34 Pappenheimer Bodies Not Reportable 08/06/18 04:34 Sickle Cells Not Reportable 08/06/18 04:34 Target Cells Not Reportable 08/06/18 04:34 Tear Drop Cells Few 08/06/18 04:34 Ovalocytes Not Reportable 08/06/18 04:34 Helmet Cells Not Reportable 08/06/18 04:34 Azul-[place] Bodies Not Reportable 08/06/18 04:34 [place] Rings Not Reportable 08/06/18 04:34 [place] Cells Not Reportable 08/06/18 04:34 Bite Cells Not Reportable 08/06/18 04:34 Crenated Cell Not Reportable 08/06/18 04:34 Elliptocytes Not Reportable 08/06/18 04:34 Acanthocytes (Spur) Not Reportable 08/06/18 04:34 Rouleaux Not Reportable 08/06/18 04:34 Hemoglobin C Crystals Not Reportable 08/06/18 04:34 Schistocytes Not Reportable 08/06/18 04:34 Malaria parasites Not Reportable 08/06/18 04:34 Ahmet Bodies Not Reportable 08/06/18 04:34 Hem Pathologist Commnt No 08/06/18 04:34 PT 20.8 Sec. (12.2-14.9) H 08/03/18 23:35 INR 1.73 (0.87-1.13) H 08/03/18 23:35 APTT 36.2 Sec. (24.2-36.6) 08/03/18 23:35 Sodium 138 mmol/L (137-145) 08/06/18 04:34 Potassium 3.6 mmol/L (3.6-5.0) 08/06/18 04:34 Chloride 109.6 mmol/L (98-107) H 08/06/18 04:34 Carbon Dioxide 19 mmol/L (22-30) L 08/06/18 04:34 Anion Gap 13 mmol/L 08/06/18 04:34 BUN 8 mg/dL (9-20) L 08/06/18 04:34 Creatinine 0.6 mg/dL (0.8-1.5) L 08/06/18 04:34 Estimated GFR > 60 ml/min 08/06/18 04:34 BUN/Creatinine Ratio 13 % 08/06/18 04:34 Glucose 79 mg/dL (75-100) 08/06/18 04:34 POC Glucose 93 (70-105) 08/05/18 20:59 Calcium 7.3 mg/dL (8.4-10.2) L 08/06/18 04:34 Phosphorus 1.90 mg/dL (2.5-4.5) L 08/06/18 10:09 Magnesium 1.70 mg/dL (1.7-2.3) 08/06/18 10:09 Total Bilirubin 2.50 mg/dL (0.1-1.2) H 08/03/18 23:35 AST 99 units/L (5-40) H 08/03/18 23:35 ALT 44 units/L (7-56) 08/03/18 23:35 Alkaline Phosphatase 125 units/L (35-129) 08/03/18 23:35 Total Protein 7.2 g/dL (6.3-8.2) 08/03/18 23:35 Albumin 3.3 g/dL (3.9-5) L 08/03/18 23:35 Albumin/Globulin Ratio 0.8 % 08/03/18 23:35
[2018-08-06] MEDS ORDERED: KPHOS 40 MMOL in NACL 0.9% 500 ML 500 ML IV ONE (17:41)
[2018-08-07] MEDS: VANCOMYCIN 1,250 MG in NACL 0.9% 250ML 250 ML IV SCH ×2 (04:59→16:40)
[2018-08-07] MEDS: PERCOCET 5/325 PO PRN ×3 (05:04→18:30)
[2018-08-07 05:42] LABS: Hematocrit 35.5 % (35.5-45.6); Hemoglobin 12.2 gm/dl (11.8-15.2); Mean Corpuscular HGB Conc 34 % (32-34); Mean Corpuscular Hemoglobin 37 pg (28-32); Mean Corpuscular Volume 106 fl (84-94); Red Blood Count 3.34 M/mm3 (3.65-5.03); Red Cell Distribution Width 18.2 % (13.2-15.2)
[2018-08-07 05:52] LABS: Platelet Count 42 K/mm3 (140-440)
[2018-08-07 06:25] LABS: Alanine Aminotransferase 36 units/L (7-56); Albumin 2.6 g/dL (3.9-5); BUN/Creatinine Ratio 13; Blood Urea Nitrogen 9 mg/dL (9-20); Calcium 7.3 mg/dL (8.4-10.2); Hemolysis Index 2
[2018-08-07 07:28] LABS: Basophils % (Manual) 0 % (0.0-1.8); Total Cells Counted 100
[2018-08-07 07:29] LABS: Platelet Estimate Consistent w Auto
[2018-08-07 07:32] LABS: Anisocytosis 1+
[2018-08-07 07:33] LABS: Tear Drop Cells Rare
[2018-08-07] MEDS: CLEOCIN PO SCH ×4 (09:34→22:20)
[2018-08-07] MEDS: FOLVITE PO SCH (09:34)
[2018-08-07] MEDS: VITAMIN B-1 PO SCH (09:34)
--- NOTE | 2018-08-07 09:36 | Progress Note ---
Assessment and Plan Assessment and plan: --Left lower extremity cellulitis; slightly improved Elevate the limb, IV antibiotics Vanco and Levaquin and follow cultures --Severe thrombocytopenia; Probably alcohol related Watch for bleeding, hematology following --Leukopenia; WBC to 1.7 closely monitor hematology following, neutropenia precautions --Severe hypokalemia; present on admission, corrected --Hypomagnesemia; replaced with magnesium sulfate, corrected --Hypophosphatemia; IV K-Phos, corrected--Coagulopathy; INR 1.73, hold Eliquis[ unknown indication] In view of coagulopathy, severe thrombocytopenia --Transaminitis; probably secondary to alcohol use --Chronic alcohol use; counseling,advised to quit alcohol intake --Alcohol withdrawal symptoms; CIWA protocol as needed --Severe malnutrition; hypoalbuminemia Nutrition supplements and supportive care, nutrition consult if needed --DVT prophylaxis; no pharmacologic anticoagulation in view of severe thrombocytopenia, SCDs Closely monitor the patient and adjust management as needed Plan of care is reviewed with the patient and his nurse History Interval history: Patient seen and examined medical records reviewed Severe leukopenia, neutropenia, thrombocytopenia Hematology following, on neutropenic precautions Visit minimal improvement of leukocytes Patient feels better no new complaints Vital signs noted Hospitalist Physical - Constitutional Vitals: Temp Pulse Resp BP Pulse Ox 98.7 F 83 18 133/74 96 08/07/18 06:04 08/07/18 06:04 08/07/18 06:04 08/07/18 06:04 08/07/18 06:04 General appearance: Present: no acute distress, well-nourished - EENT Eyes: Present: PERRL, EOM intact - Neck Neck: Present: supple, normal ROM - Respiratory Respiratory effort: normal Respiratory: bilateral: diminished, negative: rales, rhonchi, wheezing - Cardiovascular Rhythm: regular Heart Sounds: Present: S1 & S2 - Extremities Extremities: no ischemia, No edema - Abdominal General gastrointestinal: soft, non-tender, non-distended, normal bowel sounds - Integumentary Integumentary: Present: clear, warm - Psychiatric Psychiatric: appropriate mood/affect, cooperative - Neurologic Neurologic: CNII-XII intact, moves all extremities Results - Labs CBC & Chem 7: 08/07/18 04:22 08/07/18 04:22 Labs: Laboratory Last Values WBC 1.7 K/mm3 (4.5-11.0) L* 08/07/18 04:22 RBC 3.34 M/mm3 (3.65-5.03) L 08/07/18 04:22 Hgb 12.2 gm/dl (11.8-15.2) 08/07/18 04:22 Hct 35.5 % (35.5-45.6) 08/07/18 04:22 MCV 106 fl (84-94) H 08/07/18 04:22 MCH 37 pg (28-32) H 08/07/18 04:22 MCHC 34 % (32-34) 08/07/18 04:22 RDW 18.2 % (13.2-15.2) H 08/07/18 04:22 Plt Count 42 K/mm3 (140-440) L 08/07/18 04:22 Lymph % (Auto) 29.1 % (13.4-35.0) 08/03/18 23:35 [place] % (Auto) 8.0 % (0.0-7.3) H 08/03/18 23:35 Eos % (Auto) 1.2 % (0.0-4.3) 08/03/18 23:35 Baso % (Auto) 0.5 % (0.0-1.8) 08/03/18 23:35 Lymph # 1.0 K/mm3 (1.2-5.4) L 08/03/18 23:35 [place] # 0.3 K/mm3 (0.0-0.8) 08/03/18 23:35 Eos # 0.0 K/mm3 (0.0-0.4) 08/03/18 23:35 Baso # 0.0 K/mm3 (0.0-0.1) 08/03/18 23:35 Add Manual Diff Complete 08/07/18 04:22 Total Counted 100 08/07/18 04:22 Seg Neutrophils % Envelope Fold Operator 08/07/18 04:22 Seg Neuts % (Manual) 60.0 % (40.0-70.0) 08/07/18 04:22 Band Neutrophils % 0 % 08/07/18 04:22 Lymphocytes % (Manual) 31.0 % (13.4-35.0) 08/07/18 04:22 Reactive Lymphs % (Man) 0 % 08/07/18 04:22 Monocytes % (Manual) 7.0 % (0.0-7.3) 08/07/18 04:22 Eosinophils % (Manual) 2.0 % (0.0-4.3) 08/07/18 04:22 Basophils % (Manual) 0 % (0.0-1.8) 08/07/18 04:22 Metamyelocytes % 0 % 08/07/18 04:22 Myelocytes % 0 % 08/07/18 04:22 Promyelocytes % 0 % 08/07/18 04:22 Blast Cells % 0 % 08/07/18 04:22 Nucleated RBC % Not Reportable 08/07/18 04:22 Seg Neutrophils # 2.1 K/mm3 (1.8-7.7) 08/03/18 23:35 Seg Neutrophils # Man 1.0 K/mm3 (1.8-7.7) L 08/07/18 04:22 Band Neutrophils # 0.0 K/mm3 08/07/18 04:22 Lymphocytes # (Manual) 0.5 K/mm3 (1.2-5.4) L 08/07/18 04:22 Abs React Lymphs (Man) 0.0 K/mm3 08/07/18 04:22 Monocytes # (Manual) 0.1 K/mm3 (0.0-0.8) 08/07/18 04:22 Eosinophils # (Manual) 0.0 K/mm3 (0.0-0.4) 08/07/18 04:22 Basophils # (Manual) 0.0 K/mm3 (0.0-0.1) 08/07/18 04:22 Metamyelocytes # 0.0 K/mm3 08/07/18 04:22 Myelocytes # 0.0 K/mm3 08/07/18 04:22 Promyelocytes # 0.0 K/mm3 08/07/18 04:22 Blast Cells # 0.0 K/mm3 08/07/18 04:22 WBC Morphology Not Reportable 08/07/18 04:22 Hypersegmented Neuts Not Reportable 08/07/18 04:22 Hyposegmented Neuts Not Reportable 08/07/18 04:22 Hypogranular Neuts Not Reportable 08/07/18 04:22 Smudge Cells Not Reportable 08/07/18 04:22 Toxic Granulation Not Reportable 08/07/18 04:22 Toxic Vacuolation Not Reportable 08/07/18 04:22 Dohle Bodies Not Reportable 08/07/18 04:22 Pelger-Huet Anomaly Not Reportable 08/07/18 04:22 Mago Rods Not Reportable 08/07/18 04:22 Platelet Estimate Consistent w auto 08/07/18 04:22 Clumped Platelets Not Reportable 08/07/18 04:22 Plt Clumps, EDTA Not Reportable 08/07/18 04:22 Large Platelets Not Reportable 08/07/18 04:22 Giant Platelets Not Reportable 08/07/18 04:22 Platelet Satelliting Not Reportable 08/07/18 04:22 Plt Morphology Comment Not Reportable 08/07/18 04:22 RBC Morphology Not Reportable 08/07/18 04:22 Dimorphic RBCs Not Reportable 08/07/18 04:22 Polychromasia Not Reportable 08/07/18 04:22 Hypochromasia Not Reportable 08/07/18 04:22 Poikilocytosis Not Reportable 08/07/18 04:22 Anisocytosis 1+ 08/07/18 04:22 Microcytosis Not Reportable 08/07/18 04:22 Macrocytosis Not Reportable 08/07/18 04:22 Spherocytes Not Reportable 08/07/18 04:22 Pappenheimer Bodies Not Reportable 08/07/18 04:22 Sickle Cells Not Reportable 08/07/18 04:22 Target Cells Not Reportable 08/07/18 04:22 Tear Drop Cells Rare 08/07/18 04:22 Ovalocytes Not Reportable 08/07/18 04:22 Helmet Cells Not Reportable 08/07/18 04:22 Azul-[place] Bodies Not Reportable 08/07/18 04:22 [place] Rings Not Reportable 08/07/18 04:22 Hussain Cells Not Reportable 08/07/18 04:22 Bite Cells Not Reportable 08/07/18 04:22 Crenated Cell Not Reportable 08/07/18 04:22 Elliptocytes Not Reportable 08/07/18 04:22 Acanthocytes (Spur) Not Reportable 08/07/18 04:22 Rouleaux Not Reportable 08/07/18 04:22 Hemoglobin C Crystals Not Reportable 08/07/18 04:22 Schistocytes Not Reportable 08/07/18 04:22 Malaria parasites Not Reportable 08/07/18 04:22 Ahmet Bodies Not Reportable 08/07/18 04:22 Hem Pathologist Commnt No 08/07/18 04:22 PT 20.8 Sec. (12.2-14.9) H 08/03/18 23:35 INR 1.73 (0.87-1.13) H 08/03/18 23:35 APTT 36.2 Sec. (24.2-36.6) 08/03/18 23:35 Sodium 141 mmol/L (137-145) 08/07/18 04:22 Potassium 4.3 mmol/L (3.6-5.0) 08/07/18 04:22 Chloride 113.6 mmol/L (98-107) H 08/07/18 04:22 Carbon Dioxide 18 mmol/L (22-30) L 08/07/18 04:22 Anion Gap 14 mmol/L 08/07/18 04:22 BUN 9 mg/dL (9-20) 08/07/18 04:22 Creatinine 0.7 mg/dL (0.8-1.5) L 08/07/18 04:22 Estimated GFR > 60 ml/min 08/07/18 04:22 BUN/Creatinine Ratio 13 % 08/07/18 04:22 Glucose 80 mg/dL (75-100) 08/07/18 04:22 POC Glucose 93 (70-105) 08/05/18 20:59 Calcium 7.3 mg/dL (8.4-10.2) L 08/07/18 04:22 Phosphorus 1.90 mg/dL (2.5-4.5) L 08/06/18 10:09 Magnesium 1.70 mg/dL (1.7-2.3) 08/07/18 04:22 Total Bilirubin 1.10 mg/dL (0.1-1.2) 08/07/18 04:22 AST 77 units/L (5-40) H 08/07/18 04:22 ALT 36 units/L (7-56) 08/07/18 04:22 Alkaline Phosphatase 102 units/L (35-129) 08/07/18 04:22 Total Protein 5.9 g/dL (6.3-8.2) L 08/07/18 04:22 Albumin 2.6 g/dL (3.9-5) L 08/07/18 04:22 Albumin/Globulin Ratio 0.8 % 08/07/18 04:22
[2018-08-07] MEDS: NACL 0.9% 1000 ML 1,000 ML IV SCH (14:19)
[2018-08-08] MEDS: VANCOMYCIN 1,250 MG in NACL 0.9% 250ML 250 ML IV SCH ×2 (04:06→16:12)
--- NOTE | 2018-08-08 08:50 | Hem/Onc Progress Note ---
Assessment and Plan Platelets are low. Patient is high risk for bleeding. Agree with stopping anticoagulants. May need cardiology evaluation since patient states he had some issues with the heart that he thinks he was on anticoagulants for Neutropenia secondary to infection and liver disease. Continue to watch. Continue antibiotics. neutropenia- seems multifactorial- cont a/b follow cbc Subjective Date of service: 08/08/18 Interval history: Patient feels fair. Denies any active bleeding. leg pain improving but still present Objective - Constitutional Vitals: Last Vital Signs Temp 98.1 F 08/07/18 23:51 Pulse 79 08/07/18 23:51 Resp 18 08/07/18 23:51 BP 141/76 08/07/18 23:51 Pulse Ox 98 08/07/18 23:51 General appearance: mild distress Performance status: 3-limited selfcare - Neck Neck: supple - Respiratory Respiratory effort: Positive: normal Respiratory: bilateral: diminished - Cardiovascular Rhythm: regular Extremities: abnormal (R leg red but better)
[2018-08-08 09:38] LABS: Hematocrit 38.2 % (35.5-45.6); Hemoglobin 13.5 gm/dl (11.8-15.2); Mean Corpuscular HGB Conc 35 % (32-34); Mean Corpuscular Hemoglobin 37 pg (28-32); Mean Corpuscular Volume 105 fl (84-94); Red Blood Count 3.63 M/mm3 (3.65-5.03); Red Cell Distribution Width 17.8 % (13.2-15.2)
[2018-08-08] MEDS: CLEOCIN PO SCH ×4 (10:14→21:38)
[2018-08-08] MEDS: VITAMIN B-1 PO SCH (10:14)
[2018-08-08] MEDS: PERCOCET 5/325 PO PRN ×3 (10:14→22:59)
[2018-08-08] MEDS: FOLVITE PO SCH (10:15)
--- NOTE | 2018-08-08 10:26 | Progress Note ---
Assessment and Plan Assessment and plan: --Left lower extremity cellulitis; slightly improved Elevate the limb, IV antibiotics Vanco and Levaquin and follow cultures --Severe thrombocytopenia; Probably alcohol related Watch for bleeding, hematology following --Leukopenia; WBC to 1.6 closely monitor hematology following, neutrophils ,neutropenia precautions as needed --Severe hypokalemia; present on admission, corrected --Hypomagnesemia; replaced with magnesium sulfate, corrected --Hypophosphatemia; IV K-Phos, corrected --Transaminitis; probably secondary to alcohol use --Chronic alcohol use; counseling,advised to quit alcohol intake --Alcohol withdrawal symptoms; CIWA protocol as needed --Severe malnutrition; hypoalbuminemia Nutrition supplements and supportive care, nutrition consult if needed --DVT prophylaxis; no pharmacologic anticoagulation in view of severe thrombocytopenia, SCDs Closely monitor the patient and adjust management as needed Plan of care is reviewed with the patient and his nurse History Interval history: Patient seen and examined medical records reviewed Feels slightly better no new complaints Leukocytosis remained low 1.6 K today Vital Signs reviewed Hospitalist Physical - Constitutional Vitals: Temp Pulse Resp BP Pulse Ox 98.5 F 73 20 132/78 96 08/08/18 09:06 08/08/18 09:06 08/08/18 10:14 08/08/18 09:06 08/08/18 09:06 General appearance: Present: no acute distress, well-nourished - EENT Eyes: Present: PERRL, EOM intact - Neck Neck: Present: supple, normal ROM - Respiratory Respiratory effort: normal Respiratory: negative: rales, rhonchi, wheezing - Cardiovascular Rhythm: regular Heart Sounds: Present: S1 & S2 - Extremities Extremities: no ischemia, No edema - Abdominal General gastrointestinal: soft, non-tender, non-distended, normal bowel sounds - Integumentary Integumentary: Present: clear, warm - Psychiatric Psychiatric: appropriate mood/affect, cooperative - Neurologic Neurologic: CNII-XII intact, moves all extremities Results - Labs CBC & Chem 7: 08/08/18 09:15 08/07/18 04:22 Labs: Laboratory Last Values WBC 1.6 K/mm3 (4.5-11.0) L* 08/08/18 09:15 RBC 3.63 M/mm3 (3.65-5.03) L 08/08/18 09:15 Hgb 13.5 gm/dl (11.8-15.2) 08/08/18 09:15 Hct 38.2 % (35.5-45.6) 08/08/18 09:15 MCV 105 fl (84-94) H 08/08/18 09:15 MCH 37 pg (28-32) H 08/08/18 09:15 MCHC 35 % (32-34) H 08/08/18 09:15 RDW 17.8 % (13.2-15.2) H 08/08/18 09:15 Plt Count 42 K/mm3 (140-440) L 08/07/18 04:22 Lymph % (Auto) 29.1 % (13.4-35.0) 08/03/18 23:35 [place] % (Auto) 8.0 % (0.0-7.3) H 08/03/18 23:35 Eos % (Auto) 1.2 % (0.0-4.3) 08/03/18 23:35 Baso % (Auto) 0.5 % (0.0-1.8) 08/03/18 23:35 Lymph # 1.0 K/mm3 (1.2-5.4) L 08/03/18 23:35 [place] # 0.3 K/mm3 (0.0-0.8) 08/03/18 23:35 Eos # 0.0 K/mm3 (0.0-0.4) 08/03/18 23:35 Baso # 0.0 K/mm3 (0.0-0.1) 08/03/18 23:35 Add Manual Diff Complete 08/07/18 04:22 Total Counted 100 08/07/18 04:22 Seg Neutrophils % Tobacco Sampler 08/07/18 04:22 Seg Neuts % (Manual) 60.0 % (40.0-70.0) 08/07/18 04:22 Band Neutrophils % 0 % 08/07/18 04:22 Lymphocytes % (Manual) 31.0 % (13.4-35.0) 08/07/18 04:22 Reactive Lymphs % (Man) 0 % 08/07/18 04:22 Monocytes % (Manual) 7.0 % (0.0-7.3) 08/07/18 04:22 Eosinophils % (Manual) 2.0 % (0.0-4.3) 08/07/18 04:22 Basophils % (Manual) 0 % (0.0-1.8) 08/07/18 04:22 Metamyelocytes % 0 % 08/07/18 04:22 Myelocytes % 0 % 08/07/18 04:22 Promyelocytes % 0 % 08/07/18 04:22 Blast Cells % 0 % 08/07/18 04:22 Nucleated RBC % Not Reportable 08/07/18 04:22 Seg Neutrophils # 2.1 K/mm3 (1.8-7.7) 08/03/18 23:35 Seg Neutrophils # Man 1.0 K/mm3 (1.8-7.7) L 08/07/18 04:22 Band Neutrophils # 0.0 K/mm3 08/07/18 04:22 Lymphocytes # (Manual) 0.5 K/mm3 (1.2-5.4) L 08/07/18 04:22 Abs React Lymphs (Man) 0.0 K/mm3 08/07/18 04:22 Monocytes # (Manual) 0.1 K/mm3 (0.0-0.8) 08/07/18 04:22 Eosinophils # (Manual) 0.0 K/mm3 (0.0-0.4) 08/07/18 04:22 Basophils # (Manual) 0.0 K/mm3 (0.0-0.1) 08/07/18 04:22 Metamyelocytes # 0.0 K/mm3 08/07/18 04:22 Myelocytes # 0.0 K/mm3 08/07/18 04:22 Promyelocytes # 0.0 K/mm3 08/07/18 04:22 Blast Cells # 0.0 K/mm3 08/07/18 04:22 WBC Morphology Not Reportable 08/07/18 04:22 Hypersegmented Neuts Not Reportable 08/07/18 04:22 Hyposegmented Neuts Not Reportable 08/07/18 04:22 Hypogranular Neuts Not Reportable 08/07/18 04:22 Smudge Cells Not Reportable 08/07/18 04:22 Toxic Granulation Not Reportable 08/07/18 04:22 Toxic Vacuolation Not Reportable 08/07/18 04:22 Dohle Bodies Not Reportable 08/07/18 04:22 Pelger-Huet Anomaly Not Reportable 08/07/18 04:22 Mago Rods Not Reportable 08/07/18 04:22 Platelet Estimate Consistent w auto 08/07/18 04:22 Clumped Platelets Not Reportable 08/07/18 04:22 Plt Clumps, EDTA Not Reportable 08/07/18 04:22 Large Platelets Not Reportable 08/07/18 04:22 Giant Platelets Not Reportable 08/07/18 04:22 Platelet Satelliting Not Reportable 08/07/18 04:22 Plt Morphology Comment Not Reportable 08/07/18 04:22 RBC Morphology Not Reportable 08/07/18 04:22 Dimorphic RBCs Not Reportable 08/07/18 04:22 Polychromasia Not Reportable 08/07/18 04:22 Hypochromasia Not Reportable 08/07/18 04:22 Poikilocytosis Not Reportable 08/07/18 04:22 Anisocytosis 1+ 08/07/18 04:22 Microcytosis Not Reportable 08/07/18 04:22 Macrocytosis Not Reportable 08/07/18 04:22 Spherocytes Not Reportable 08/07/18 04:22 Pappenheimer Bodies Not Reportable 08/07/18 04:22 Sickle Cells Not Reportable 08/07/18 04:22 Target Cells Not Reportable 08/07/18 04:22 Tear Drop Cells Rare 08/07/18 04:22 Ovalocytes Not Reportable 08/07/18 04:22 Helmet Cells Not Reportable 08/07/18 04:22 Azul-[place] Bodies Not Reportable 08/07/18 04:22 [place] Rings Not Reportable 08/07/18 04:22 Hussain Cells Not Reportable 08/07/18 04:22 Bite Cells Not Reportable 08/07/18 04:22 Crenated Cell Not Reportable 08/07/18 04:22 Elliptocytes Not Reportable 08/07/18 04:22 Acanthocytes (Spur) Not Reportable 08/07/18 04:22 Rouleaux Not Reportable 08/07/18 04:22 Hemoglobin C Crystals Not Reportable 08/07/18 04:22 Schistocytes Not Reportable 08/07/18 04:22 Malaria parasites Not Reportable 08/07/18 04:22 Ahmet Bodies Not Reportable 08/07/18 04:22 Hem Pathologist Commnt No 08/07/18 04:22 PT 20.8 Sec. (12.2-14.9) H 08/03/18 23:35 INR 1.73 (0.87-1.13) H 08/03/18 23:35 APTT 36.2 Sec. (24.2-36.6) 08/03/18 23:35 Sodium 141 mmol/L (137-145) 08/07/18 04:22 Potassium 4.3 mmol/L (3.6-5.0) 08/07/18 04:22 Chloride 113.6 mmol/L (98-107) H 08/07/18 04:22 Carbon Dioxide 18 mmol/L (22-30) L 08/07/18 04:22 Anion Gap 14 mmol/L 08/07/18 04:22 BUN 9 mg/dL (9-20) 08/07/18 04:22 Creatinine 0.7 mg/dL (0.8-1.5) L 08/07/18 04:22 Estimated GFR > 60 ml/min 08/07/18 04:22 BUN/Creatinine Ratio 13 % 08/07/18 04:22 Glucose 80 mg/dL (75-100) 08/07/18 04:22 POC Glucose 93 (70-105) 08/05/18 20:59 Calcium 7.3 mg/dL (8.4-10.2) L 08/07/18 04:22 Phosphorus 1.90 mg/dL (2.5-4.5) L 08/06/18 10:09 Magnesium 1.70 mg/dL (1.7-2.3) 08/07/18 04:22 Total Bilirubin 1.10 mg/dL (0.1-1.2) 08/07/18 04:22 AST 77 units/L (5-40) H 08/07/18 04:22 ALT 36 units/L (7-56) 08/07/18 04:22 Alkaline Phosphatase 102 units/L (35-129) 08/07/18 04:22 Total Protein 5.9 g/dL (6.3-8.2) L 08/07/18 04:22 Albumin 2.6 g/dL (3.9-5) L 08/07/18 04:22 Albumin/Globulin Ratio 0.8 % 08/07/18 04:22
[2018-08-08 10:41] LABS: Basophils % (Manual) 0 % (0.0-1.8); Total Cells Counted 100
[2018-08-08 10:42] LABS: Platelet Estimate Consistent w Auto; Poikilocytosis Few; Tear Drop Cells Few
[2018-08-08 10:43] LABS: Platelet Count 50 K/mm3 (140-440)
[2018-08-08] MEDS: NACL 0.9% 1000 ML 1,000 ML IV SCH (16:12)
[2018-08-09] MEDS: NACL 0.9% 1000 ML 1,000 ML IV SCH ×2 (03:59→14:30)
[2018-08-09] MEDS: VANCOMYCIN 1,250 MG in NACL 0.9% 250ML 250 ML IV SCH (03:59)
[2018-08-09] MEDS: CLEOCIN PO SCH ×4 (09:36→21:01)
[2018-08-09] MEDS: VITAMIN B-1 PO SCH (09:36)
[2018-08-09] MEDS: FOLVITE PO SCH (09:36)
[2018-08-09] MEDS: PERCOCET 5/325 PO PRN ×2 (09:40→17:51)
[2018-08-09 11:35] LABS: Hematocrit 34.4 % (35.5-45.6); Mean Corpuscular HGB Conc 35 % (32-34); Mean Corpuscular Hemoglobin 37 pg (28-32); Mean Corpuscular Volume 106 fl (84-94); Red Blood Count 3.26 M/mm3 (3.65-5.03); Red Cell Distribution Width 17.5 % (13.2-15.2)
--- NOTE | 2018-08-09 11:35 | Hem/Onc Progress Note ---
Assessment and Plan Platelets are low. Patient is high risk for bleeding. Agree with stopping anticoagulants. May need cardiology evaluation as op since patient states he had some issues with the heart that he thinks he was on anticoagulants for Neutropenia secondary to infection and liver disease. Continue to watch. Continue antibiotics. neutropenia- seems multifactorial- cont a/b follow cbc Subjective Date of service: 08/09/18 Interval history: Patient feels fair. Denies any active bleeding. leg pain improving but still present Objective - Constitutional Vitals: Last Vital Signs Temp 97.9 F 08/09/18 05:58 Pulse 73 08/09/18 05:58 Resp 19 08/09/18 05:58 BP 129/82 08/09/18 05:58 Pulse Ox 97 08/09/18 05:58 Performance status: 3-limited selfcare - Neck Neck: supple - Respiratory Respiratory: bilateral: diminished - Cardiovascular Rhythm: regular Extremity abnormal: other (swelling R leg) - Gastrointestinal General gastrointestinal: Present: soft - Labs Lab Results: Laboratory Results - last 24 hr 08/08/18 15:15 Vancomycin Trough 4.0 L
--- NOTE | 2018-08-09 11:39 | Progress Note ---
Assessment and Plan Assessment and plan: --Left lower extremity cellulitis; slightly improved Elevate the limb, IV antibiotics Vanco and Levaquin and follow cultures --Severe thrombocytopenia; Probably alcohol related Watch for bleeding, hematology following --Leukopenia; WBC to 1.6 , no labs done today hematology following, neutrophils ,neutropenia precautions as needed --Severe hypokalemia; present on admission, corrected --Hypomagnesemia; replaced --Hypophosphatemia; IV K-Phos, corrected --Transaminitis; probably secondary to alcohol use --Chronic alcohol use; counseling,advised to quit alcohol intake --Alcohol withdrawal symptoms; CIWA protocol as needed --Severe malnutrition; hypoalbuminemia Nutrition supplements and supportive care, nutrition consult if needed --DVT prophylaxis; no pharmacologic anticoagulation in view of severe thrombocytopenia, SCDs Discharge in 1-2 days if stable History Interval history: Patient seen and examined medical records reviewed No new events noted by the nursing staff Patient is comfortable, no new complaints except for Mild pain and ankle Vital signs noted Hospitalist Physical - Constitutional Vitals: Temp Pulse Resp BP Pulse Ox 97.9 F 73 19 129/82 97 08/09/18 05:58 08/09/18 05:58 08/09/18 05:58 08/09/18 05:58 08/09/18 05:58 General appearance: Present: no acute distress, well-nourished - EENT Eyes: Present: PERRL, EOM intact - Neck Neck: Present: supple, normal ROM - Respiratory Respiratory: bilateral: diminished, negative: rales, rhonchi, wheezing - Cardiovascular Rhythm: regular Heart Sounds: Present: S1 & S2 - Extremities Extremities: no ischemia, No edema - Abdominal General gastrointestinal: soft, non-tender, non-distended, normal bowel sounds - Integumentary Integumentary: Present: clear, warm - Psychiatric Psychiatric: appropriate mood/affect, cooperative - Neurologic Neurologic: CNII-XII intact, moves all extremities Results - Labs CBC & Chem 7: 08/08/18 09:15 08/07/18 04:22 Labs: Laboratory Last Values WBC 1.6 K/mm3 (4.5-11.0) L* 08/08/18 09:15 RBC 3.63 M/mm3 (3.65-5.03) L 08/08/18 09:15 Hgb 13.5 gm/dl (11.8-15.2) 08/08/18 09:15 Hct 38.2 % (35.5-45.6) 08/08/18 09:15 MCV 105 fl (84-94) H 08/08/18 09:15 MCH 37 pg (28-32) H 08/08/18 09:15 MCHC 35 % (32-34) H 08/08/18 09:15 RDW 17.8 % (13.2-15.2) H 08/08/18 09:15 Plt Count 50 K/mm3 (140-440) L 08/08/18 09:15 Lymph % (Auto) 29.1 % (13.4-35.0) 08/03/18 23:35 [place] % (Auto) 8.0 % (0.0-7.3) H 08/03/18 23:35 Eos % (Auto) 1.2 % (0.0-4.3) 08/03/18 23:35 Baso % (Auto) 0.5 % (0.0-1.8) 08/03/18 23:35 Lymph # 1.0 K/mm3 (1.2-5.4) L 08/03/18 23:35 [place] # 0.3 K/mm3 (0.0-0.8) 08/03/18 23:35 Eos # 0.0 K/mm3 (0.0-0.4) 08/03/18 23:35 Baso # 0.0 K/mm3 (0.0-0.1) 08/03/18 23:35 Add Manual Diff Complete 08/08/18 09:15 Total Counted 100 08/08/18 09:15 Seg Neutrophils % Grind Operator 08/07/18 04:22 Seg Neuts % (Manual) 49.0 % (40.0-70.0) 08/08/18 09:15 Band Neutrophils % 0 % 08/08/18 09:15 Lymphocytes % (Manual) 38.0 % (13.4-35.0) H 08/08/18 09:15 Reactive Lymphs % (Man) 0 % 08/08/18 09:15 Monocytes % (Manual) 6.0 % (0.0-7.3) 08/08/18 09:15 Eosinophils % (Manual) 7.0 % (0.0-4.3) H 08/08/18 09:15 Basophils % (Manual) 0 % (0.0-1.8) 08/08/18 09:15 Metamyelocytes % 0 % 08/08/18 09:15 Myelocytes % 0 % 08/08/18 09:15 Promyelocytes % 0 % 08/08/18 09:15 Blast Cells % 0 % 08/08/18 09:15 Nucleated RBC % Not Reportable 08/08/18 09:15 Seg Neutrophils # 2.1 K/mm3 (1.8-7.7) 08/03/18 23:35 Seg Neutrophils # Man 0.8 K/mm3 (1.8-7.7) L 08/08/18 09:15 Band Neutrophils # 0.0 K/mm3 08/08/18 09:15 Lymphocytes # (Manual) 0.6 K/mm3 (1.2-5.4) L 08/08/18 09:15 Abs React Lymphs (Man) 0.0 K/mm3 08/08/18 09:15 Monocytes # (Manual) 0.1 K/mm3 (0.0-0.8) 08/08/18 09:15 Eosinophils # (Manual) 0.1 K/mm3 (0.0-0.4) 08/08/18 09:15 Basophils # (Manual) 0.0 K/mm3 (0.0-0.1) 08/08/18 09:15 Metamyelocytes # 0.0 K/mm3 08/08/18 09:15 Myelocytes # 0.0 K/mm3 08/08/18 09:15 Promyelocytes # 0.0 K/mm3 08/08/18 09:15 Blast Cells # 0.0 K/mm3 08/08/18 09:15 WBC Morphology Not Reportable 08/08/18 09:15 Hypersegmented Neuts Not Reportable 08/08/18 09:15 Hyposegmented Neuts Not Reportable 08/08/18 09:15 Hypogranular Neuts Not Reportable 08/08/18 09:15 Smudge Cells Not Reportable 08/08/18 09:15 Toxic Granulation Not Reportable 08/08/18 09:15 Toxic Vacuolation Not Reportable 08/08/18 09:15 Dohle Bodies Not Reportable 08/08/18 09:15 Pelger-Huet Anomaly Not Reportable 08/08/18 09:15 Mago Rods Not Reportable 08/08/18 09:15 Platelet Estimate Consistent w auto 08/08/18 09:15 Clumped Platelets Not Reportable 08/08/18 09:15 Plt Clumps, EDTA Not Reportable 08/08/18 09:15 Large Platelets Not Reportable 08/08/18 09:15 Giant Platelets Not Reportable 08/08/18 09:15 Platelet Satelliting Not Reportable 08/08/18 09:15 Plt Morphology Comment Not Reportable 08/08/18 09:15 RBC Morphology Not Reportable 08/08/18 09:15 Dimorphic RBCs Not Reportable 08/08/18 09:15 Polychromasia Not Reportable 08/08/18 09:15 Hypochromasia Not Reportable 08/08/18 09:15 Poikilocytosis Few 08/08/18 09:15 Anisocytosis Not Reportable 08/08/18 09:15 Microcytosis Not Reportable 08/08/18 09:15 Macrocytosis Not Reportable 08/08/18 09:15 Spherocytes Not Reportable 08/08/18 09:15 Pappenheimer Bodies Not Reportable 08/08/18 09:15 Sickle Cells Not Reportable 08/08/18 09:15 Target Cells Not Reportable 08/08/18 09:15 Tear Drop Cells Few 08/08/18 09:15 Ovalocytes Not Reportable 08/08/18 09:15 Helmet Cells Not Reportable 08/08/18 09:15 Azul-[place] Bodies Not Reportable 08/08/18 09:15 [place] Rings Not Reportable 08/08/18 09:15 [place]ain Cells Not Reportable 08/08/18 09:15 Bite Cells Not Reportable 08/08/18 09:15 Crenated Cell Not Reportable 08/08/18 09:15 Elliptocytes Not Reportable 08/08/18 09:15 Acanthocytes (Spur) Not Reportable 08/08/18 09:15 Rouleaux Not Reportable 08/08/18 09:15 Hemoglobin C Crystals Not Reportable 08/08/18 09:15 Schistocytes Not Reportable 08/08/18 09:15 Malaria parasites Not Reportable 08/08/18 09:15 Ahmet Bodies Not Reportable 08/08/18 09:15 Hem Pathologist Commnt No 08/08/18 09:15 PT 20.8 Sec. (12.2-14.9) H 08/03/18 23:35 INR 1.73 (0.87-1.13) H 08/03/18 23:35 APTT 36.2 Sec. (24.2-36.6) 08/03/18 23:35 Sodium 141 mmol/L (137-145) 08/07/18 04:22 Potassium 4.3 mmol/L (3.6-5.0) 08/07/18 04:22 Chloride 113.6 mmol/L (98-107) H 08/07/18 04:22 Carbon Dioxide 18 mmol/L (22-30) L 08/07/18 04:22 Anion Gap 14 mmol/L 08/07/18 04:22 BUN 9 mg/dL (9-20) 08/07/18 04:22 Creatinine 0.7 mg/dL (0.8-1.5) L 08/07/18 04:22 Estimated GFR > 60 ml/min 08/07/18 04:22 BUN/Creatinine Ratio 13 % 08/07/18 04:22 Glucose 80 mg/dL (75-100) 08/07/18 04:22 POC Glucose 93 (70-105) 08/05/18 20:59 Calcium 7.3 mg/dL (8.4-10.2) L 08/07/18 04:22 Phosphorus 1.90 mg/dL (2.5-4.5) L 08/06/18 10:09 Magnesium 1.70 mg/dL (1.7-2.3) 08/07/18 04:22 Total Bilirubin 1.10 mg/dL (0.1-1.2) 08/07/18 04:22 AST 77 units/L (5-40) H 08/07/18 04:22 ALT 36 units/L (7-56) 08/07/18 04:22 Alkaline Phosphatase 102 units/L (35-129) 08/07/18 04:22 Total Protein 5.9 g/dL (6.3-8.2) L 08/07/18 04:22 Albumin 2.6 g/dL (3.9-5) L 08/07/18 04:22 Albumin/Globulin Ratio 0.8 % 08/07/18 04:22 Vancomycin Trough 4.0 ug/mL (5.0-20.0) L 08/08/18 15:15
[2018-08-09 13:09] LABS: Platelet Count 50 K/mm3 (140-440)
[2018-08-09] MEDS: VANCOMYCIN 2,000 MG in NACL 0.9% 500 ML 500 ML IV SCH ×2 (14:30→20:53)
[2018-08-09 14:51] LABS: Total Cells Counted 100
[2018-08-09 14:52] LABS: Platelet Estimate Appears Decreased; RBC Morphology Normal
[2018-08-10] MEDS: VANCOMYCIN 2,000 MG in NACL 0.9% 500 ML 500 ML IV SCH ×2 (04:54→12:32)
[2018-08-10] MEDS: PERCOCET 5/325 PO PRN (04:54)
[2018-08-10] MEDS: FOLVITE PO SCH (09:11)
[2018-08-10] MEDS: CLEOCIN PO SCH ×2 (09:11→13:14)
[2018-08-10] MEDS: VITAMIN B-1 PO SCH (09:11)
--- NOTE | 2018-08-10 12:11 | Discharge Summary ---
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 Hospitalization Condition: Stable Disposition: DC-01 TO HOME OR SELFCARE Time spent for discharge: 31 min Core Measure Documentation - Palliative Care Palliative Care/ Comfort Measures: Not Applicable - Core Measures Any of the following diagnoses?: none Exam - Constitutional Vitals: Temp Pulse Resp BP Pulse Ox 97.7 F 78 18 143/87 94 08/10/18 05:55 08/10/18 05:55 08/10/18 05:55 08/10/18 05:55 08/10/18 05:55 General appearance: Present: no acute distress, well-nourished - EENT Eyes: Present: PERRL, EOM intact - Neck Neck: Present: supple, normal ROM - Respiratory Respiratory effort: normal Respiratory: bilateral: diminished, negative: rales, rhonchi, wheezing - Cardiovascular Rhythm: regular Heart Sounds: Present: S1 & S2 - Extremities Extremities: no ischemia, No edema - Abdominal General gastrointestinal: Present: soft, non-tender, non-distended, normal bowel sounds - Integumentary Integumentary: Present: clear, warm - Musculoskeletal Musculoskeletal: strength equal bilaterally - Psychiatric Psychiatric: appropriate mood/affect, cooperative - Neurologic Neurologic: CNII-XII intact, moves all extremities Plan Activity: advance as tolerated, fall precautions Diet: regular Additional Instructions: 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
[2018-08-10 12:15] VITALS: BP 137/61
== END 2018-08-10 15:51 | disposition home or self-care (01) | DRG 602 ==
LOC: ED 21:47 → 4A 08-04 10:43 → 3A 08-04 15:47
PROVIDERS: ADMIT Internal Medicine; ATTEND Internal Medicine
DX: L03.116 Cellulitis of left lower limb (principal); E43 Unspecified severe protein-calorie malnutrition; E87.6 Hypokalemia; J44.9 Chronic obstructive pulmonary disease, unspecified; I10 Essential (primary) hypertension; K21.9 Gastro-esophageal reflux disease without esophagitis; F17.210 Nicotine dependence, cigarettes, uncomplicated; E83.42 Hypomagnesemia; F10.10 Alcohol abuse, uncomplicated; Y90.0 Blood alcohol level of less than 20 mg/100 ml; D69.6 Thrombocytopenia, unspecified; D70.9 Neutropenia, unspecified; R74.0 Nonspecific elevation of levels of transaminase and lactic acid dehydrogenase [LDH]; E83.39 Other disorders of phosphorus metabolism; Z82.49 Family history of ischemic heart disease and other diseases of the circulatory system; Z88.6 Allergy status to analgesic agent; Z88.0 Allergy status to penicillin; Z79.899 Other long term (current) drug therapy; Z68.27 Body mass index [BMI] 27.0-27.9, adult; Z86.718 Personal history of other venous thrombosis and embolism; Z79.01 Long term (current) use of anticoagulants
CPT/HCPCS: 36415; 80048; 80053; 80202; 82962; 83735; 84100; 85007; 85025; 85610; 85730; 87040; 94640; 96365; 96367; 96375; J2270; J2405; J3370; J3475; J3480; J7030; J7040; J7050

== ENCOUNTER 2018-12-29 20:46 | Emergency (ER) | payer SELFPAY ==
[2018-12-29 20:58] VITALS: BP 111/67
[2018-12-29 21:39] LABS: Mean Corpuscular HGB Conc 34 % (32-34); Mean Corpuscular Volume 98 fl (84-94); Red Blood Count 3.87 M/mm3 (3.65-5.03); Red Cell Distribution Width 19.1 % (13.2-15.2)
[2018-12-29 21:41] LABS: Platelet Count 97 K/mm3 (140-440)
[2018-12-29 21:52] LABS: INR 1.48 (0.87-1.13)
[2018-12-29 21:53] LABS: Partial Thromboplastin Time 24.8 Sec. (24.2-36.6)
[2018-12-29 22:05] LABS: Alanine Aminotransferase 64 units/L (7-56); BUN/Creatinine Ratio 10; Blood Urea Nitrogen 7 mg/dL (9-20); Calcium 8.1 mg/dL (8.4-10.2); Hemolysis Index 6
[2018-12-30] MEDS ORDERED: MORPHINE IV ONE (01:01)
[2018-12-30] MEDS ORDERED: NACL 0.9% 1000 ML 1,000 ML IV ONE (01:01)
[2018-12-30] MEDS ORDERED: TORADOL IV ONE (01:02)
--- NOTE | 2018-12-30 01:22 | Emergency Department Report ---
HPI - General Chief Complaint: Back Pain/Injury Time Seen by Provider: 12/29/18 21:18 - HPI HPI: 63-year-old male presents to the emergency department, dropped off by a friend to be seen, the complaint of some lower back pain that has been going on for the past 3-4 days. He denies any fall or any trauma. He denies any numbness or paresthesias, problems with bowel or bladder, or any neurological deficits. Patient also complains of leg pain. He says that he has had a cellulitis for the past 1-2 years. He denies any leg swelling. He has not taken anything for her symptoms prior to presentation. He has a past medical history of COPD, GERD, hypertension, chronic cellulitis and has some history of alcohol abuse. He denies any current alcohol intoxication. Patient walks with a cane at baseline secondary to his leg pains. ED Past Medical Hx - Past Medical History Hx Hypertension: Yes Hx Congestive Heart Failure: No Hx Diabetes: No Hx GERD: Yes Hx Arthritis: Yes Hx Psychiatric Treatment: Yes (alcohol abuse) Hx Asthma: No Hx COPD: Yes Hx HIV: No Additional medical history: Chronic Cellulitis left lower leg - Surgical History Past Surgical History?: No - Social History Smoking Status: Current Every Day Smoker Substance Use Type: Alcohol - Medications Home Medications: Home Medications Medication Instructions Recorded Confirmed Last Taken Type Gabapentin 600 mg PO BID 08/03/18 08/03/18 Unknown History HCTZ 25 mg PO DAILY 08/03/18 08/03/18 Unknown History Folic Acid [Folvite] 1 mg PO QDAY #30 tablet 08/10/18 Unknown Rx Thiamine [Vitamin B-1] 100 mg PO QDAY #30 tablet 08/10/18 Unknown Rx Acetaminophen/Codeine [Tylenol 1 tab PO Q6H PRN #12 tab 11/09/18 Unknown Rx /Codeine # 3 tab] Albuterol Sulfate [Ventolin HFA] 2 puff IH Q4H PRN #1 hfa.aer.ad 11/09/18 Unk nown Rx Azithromycin [Zithromax Z-KENNETH] 1 dose PO DAILY 5 Days tab 11/09/18 Unknown Rx Benzonatate [Tessalon Perles] 100 mg PO Q8HR PRN #30 capsule 11/09/18 Unknown Rx predniSONE [Deltasone] 40 mg PO QDAY 5 Days tab 11/09/18 Unknown Rx Clindamycin [Clindamycin CAP] 300 mg PO QID #20 capsule 12/30/18 Unknown Rx Tylenol /Codeine # 3 tab 1 tab PO Q6H PRN #12 12/30/18 Unknown Rx ED Review of Systems ROS: Stated complaint: LOWER BACK PAIN Other details as noted in HPI Comment: All other systems reviewed and negative Constitutional: denies: chills, fever Eyes: denies: eye pain, vision change ENT: denies: ear pain, throat pain Respiratory: denies: cough, shortness of breath Cardiovascular: denies: chest pain, palpitations Gastrointestinal: denies: abdominal pain, vomiting Genitourinary: denies: dysuria, discharge Musculoskeletal: back pain, myalgia Skin: other (chronic cellulitis). denies: rash Neurological: denies: headache, numbness, paresthesias Physical Exam - Physical Exam Vital Signs: Vital Signs 12/29/18 20:56 Temperature 98.2 F Pulse Rate 90 Respiratory 18 Rate Blood Pressure 111/67 Physical Exam: GENERAL: The patient is well-developed well-nourished. HEENT: Normocephalic. Atraumatic. Patient has moist mucous membranes. EYES: Extraocular motions are intact. Pupils are equal and reactive to light bilaterally. NECK: Supple. Trachea is midline. CHEST/LUNGS: Clear to auscultation. There is no respiratory distress noted. HEART/CARDIOVASCULAR: Regular. There is no tachycardia. There is no obvious murmur. ABDOMEN: Abdomen is soft, nontender. Patient has normal bowel sounds. There is no abdominal distention. SKIN: There is some mild erythema and nonpitting swelling of the distal half of the left lower extremity. NEURO: The patient is awake, alert, and oriented. The patient is cooperative. The patient has no focal neurologic deficits. The patient has normal speech. MUSCULOSKELETAL: There is tenderness to palpation along the distal half of the left lower extremity. There is no limitation range of motion. BACK: There is both midline and bilateral paraspinal lumbar tenderness to palpation but no step-off or deformity. ED Course Vital Signs 12/29/18 20:56 Temperature 98.2 F Pulse Rate 90 Respiratory 18 Rate Blood Pressure 111/67 ED Medical Decision Making - Lab Data Result diagrams: 12/29/18 21:07 02/18/19 21:07 - Radiology Data Radiology results: report reviewed, image reviewed interpreted by me: X-ray of the lumbar spine shows some degenerative changes but no fracture, subluxation or any acute process. Left lower extremity venous Doppler negative for DVT. - Medical Decision Making Patient presents with chronic left lower extremity pain where he has chronic cellulitis and some more recent lower back pain. No numbness or paresthesias, problems with bowel or bladder, or any other neurological deficits and the patient appears low suspicion for any of the emergent back condition such as cauda equina, epidural abscess or cord compression syndrome. X-rays of the lumbar spine show some bone spurring and degenerative changes but no acute fracture, subluxation or any other acute process. Left lower extremity venous Doppler was negative for DVT. Patient's labs were unremarkable. He was given a dose of pain medication. He was able to walk at his baseline status prior to discharge. He was given referrals for follow-up regarding his leg and his back pains. He will return to ER with any worsening of his symptoms or any acute distress. - Differential Diagnosis cellulitis, DVT, lumbar strain, fracture Critical Care Time: No Critical care attestation.: If time is entered above; I have spent that time in minutes in the direct care of this critically ill patient, excluding procedure time. ED Disposition Clinical Impression: Left leg cellulitis, Thrombocytopenia Disposition: - TO HOME OR SELFCARE Is pt being admited?: No Condition: Stable Instructions: Cellulitis (ED), Back Pain (ED) Additional Instructions: Please follow up with a primary care physician in the next few days. I have also given you a referral for a local orthopedic group to follow up regarding your leg and back pains. Return to the emergency Department with any worsening of your symptoms or any acute distress. You have been prescribed a medication that can be sedating. Therefore, this medication cannot be taken prior to driving, working, being responsible for children, and cannot be mixed with alcohol of any quantity. Prescriptions: Clindamycin [Clindamycin CAP] 300 mg PO QID #20 capsule Tylenol /Codeine # 3 tab 1 tab PO Q6H PRN #12 PRN Reason: Pain , Severe (7-10) Referrals: [facility] [Outside] - 3-5 Days [facility] [place] [Outside] - 3-5 Days [facility] [Outside] - 3-5 Days [facility] [Provider Group] - 3-5 Days
--- NOTE | 2018-12-30 02:54 | XRay Report ---
FINAL REPORT EXAM: XR SPINE LUMBOSACRAL 2-3V HISTORY: low back pain TECHNIQUE: Three views of the lumbar spine were submitted. FINDINGS: There is moderate narrowing of the L4-5 disc with endplate spurring. There is mild narrowing of the u pper lumbar disc with endplate spurring. The alignment is normal. There is no evidence of fracture. T he SI joints appear normal. There calcification of the abdominal aorta. IMPRESSION: Multilevel disc degeneration with endplate spurring. No evidence of fracture
--- NOTE | 2018-12-30 09:24 | Vascular Lab Report ---
FINAL REPORT EXAM: VL VENOUS DUPLEX LE LT HISTORY: LLE pain and swelling TECHNIQUE: Carrasco scale, color and pulsed Doppler ultrasound with color flow and spectral analysis tacos luation of the left lower extremity was performed to assess for deep vein thrombosis. PRIORS: None currently available. FINDINGS: Left Extremity: There is normal grayscale appearance and compressibility. Normal phasic pulsed Doppler and normal color Doppler flow are visualized. The interrogated vessels s how normal augmentation. IMPRESSION: No evidence for DVT.
== END 2018-12-30 11:05 | disposition home or self-care (01) ==
LOC: ED 20:46
DX: L03.116 Cellulitis of left lower limb (principal); D69.6 Thrombocytopenia, unspecified; I10 Essential (primary) hypertension; K21.9 Gastro-esophageal reflux disease without esophagitis; M19.90 Unspecified osteoarthritis, unspecified site; J44.9 Chronic obstructive pulmonary disease, unspecified; F17.200 Nicotine dependence, unspecified, uncomplicated; G89.29 Other chronic pain; Z88.6 Allergy status to analgesic agent; Z88.0 Allergy status to penicillin
CPT/HCPCS: 36415; 72100; 80053; 82550; 83880; 85027; 85610; 85730; 93971; 96374; 96375; 99285; J1885; J2270; J7030

== ENCOUNTER 2020-05-28 23:46 | Emergency (ER) | payer SELFPAY ==
[2020-05-29 03:24] VITALS: BP 129/71
--- NOTE | 2020-05-29 03:40 | Emergency Department Report ---
ED Extremity Problem HPI - General Chief complaint: Extremity Problem,Nontraumatic Stated complaint: SWELLING TO BOTH LEGS AND PAIN Time Seen by Provider: 05/29/20 03:19 Source: patient Mode of arrival: Ambulatory Limitations: No Limitations - History of Present Illness Initial comments: 65-year-old male that reports homeless presents to the emergency room for bilateral leg swelling x3 weeks. Patient states that he was bitten by a brown recluse 10 years ago and has had intermittent leg swelling that has required hospitalization in the past. Patient reports he does have a primary care provider but has not seen them. Patient reports he does not take any fluid pills. Denies any pain. Does admit that he walks a lot. He states he does have family but does not like to stay with them as there is too much drama. Patient reports he has an allergy to penicillin and aspirin. Does report a past medical history of hypertension COPD arthritis alcohol abuse chronic cellulitis and a left lower leg DVT. MD Complaint: extremity swelling Location: bilateral lower extremity History of Same: Yes Consistency: constant Worsens with: rest - Related Data Home Medications Medication Instructions Recorded Confirmed Last Taken Gabapentin 600 mg PO BID 08/03/18 08/03/18 Unknown HCTZ 25 mg PO DAILY 08/03/18 08/03/18 Unknown Previous Rx's Medication Instructions Recorded Last Taken Type Folic Acid [Folvite] 1 mg PO QDAY #30 tablet 08/10/18 Unknown Rx Thiamine [Vitamin B-1] 100 mg PO QDAY #30 tablet 08/10/18 Unknown Rx Acetaminophen/Codeine [Tylenol 1 tab PO Q6H PRN #12 tab 11/09/18 Unknown Rx /Codeine # 3 tab] Albuterol Sulfate [Ventolin HFA] 2 puff IH Q4H PRN #1 hfa.aer.ad 11/09/18 Unknown Rx Azithromycin [Zithromax Z-KENNETH] 1 dose PO DAILY 5 Days tab 11/09/18 Unknown Rx Benzonatate [Tessalon Perles] 100 mg PO Q8HR PRN #30 capsule 11/09/18 Unknown Rx predniSONE [Deltasone] 40 mg PO QDAY 5 Days tab 11/09/18 Unknown Rx Clindamycin [Clindamycin CAP] 300 mg PO QID #20 capsule 12/30/18 Unknown Rx Tylenol /Codeine # 3 tab 1 tab PO Q6H PRN #12 12/30/18 Unknown Rx Sulfamethoxazole/Trimethoprim 1 each PO BID 7 Days #14 tablet 05/29/20 Unknown Rx [Bactrim DS TAB] Allergies Allergy/AdvReac Type Severity Reaction Status Date / Time aspirin Allergy Hives Verified 08/03/18 23:26 Penicillins Allergy Itching Verified 08/03/18 23:26 ED Review of Systems ROS: Stated complaint: SWELLING TO BOTH LEGS AND PAIN Other details as noted in HPI ED Past Medical Hx - Past Medical History Hx Hypertension: Yes Hx Congestive Heart Failure: No Hx Diabetes: No Hx GERD: Yes Hx Arthritis: Yes Hx Psychiatric Treatment: Yes (alcohol abuse) Hx Asthma: No Hx COPD: Yes Hx HIV: No Additional medical history: Chronic Cellulitis left lower leg - Social History Smoking Status: Current Every Day Smoker Substance Use Type: Alcohol - Medications Home Medications: Home Medications Medication Instructions Recorded Confirmed Last Taken Type Gabapentin 600 mg PO BID 08/03/18 08/03/18 Unknown History HCTZ 25 mg PO DAILY 08/03/18 08/03/18 Unknown History Folic Acid [Folvite] 1 mg PO QDAY #30 tablet 08/10/18 Unknown Rx Thiamine [Vitamin B-1] 100 mg PO QDAY #30 tablet 08/10/18 Unknown Rx Acetaminophen/Codeine [Tylenol 1 tab PO Q6H PRN #12 tab 11/09/18 Unknown Rx /Codeine # 3 tab] Albuterol Sulfate [Ventolin HFA] 2 puff IH Q4H PRN #1 hfa.aer.ad 11/09/18 Unknown Rx Azithromycin [Zithromax Z-KENNETH] 1 dose PO DAILY 5 Days tab 11/09/18 Unknown Rx Benzonatate [Tessalon Perles] 100 mg PO Q8HR PRN #30 capsule 11/09/18 Unknown Rx predniSONE [Deltasone] 40 mg PO QDAY 5 Days tab 11/09/18 Unknown Rx Clindamycin [Clindamycin CAP] 300 mg PO QID #20 capsule 12/30/18 Unknown Rx Tylenol /Codeine # 3 tab 1 tab PO Q6H PRN #12 12/30/18 Unknown Rx Sulfamethoxazole/Trimethoprim 1 each PO BID 7 Days #14 tablet 05/29/20 Unknown Rx [Bactrim DS TAB] ED Physical Exam - General Limitations: No Limitations General appearance: alert, in no apparent distress - Head Head exam: Present: atraumatic, normocephalic - Eye Eye exam: Present: normal appearance - ENT ENT exam: Present: mucous membranes moist - Neck Neck exam: Present: normal inspection, full ROM - Extremities Exam Extremities exam: Present: pedal edema (2+ pitted) - Back Exam Back exam: Present: full ROM - Neurological Exam Neurological exam: Present: alert, oriented X3 - Psychiatric Psychiatric exam: Present: normal affect, normal mood - Expanded Skin Exam Expanded Type of lesion: Present: rash Distribution of rash: RLE, LLE Description of rash: Present: tenderness, erythematous, confluent ED Course Vital Signs 05/29/20 01:21 Temperature 97.4 F L Pulse Rate 71 Respiratory 18 Rate Blood Pressure 129/71 O2 Sat by Pulse 100 Oximetry ED Medical Decision Making - Medical Decision Making 65-year-old male that reports homeless presents to the emergency room for bilateral leg swelling x3 weeks. Patient states that he was bitten by a brown recluse 10 years ago and has had intermittent leg swelling that has required hospitalization in the past. Patient reports he does have a primary care provider but has not seen them. Patient reports he does not take any fluid pills. Denies any pain. Does admit that he walks a lot. He states he does have family but does not like to stay with them as there is too much drama. Patient reports he has an allergy to penicillin and aspirin. Does report a past medical history of hypertension COPD arthritis alcohol abuse chronic cellulitis and a left lower leg DVT. Patient be placed on Bactrim double strength. Encouraged to elevate legs avoid sodium intake and rest. Critical care attestation.: If time is entered above; I have spent that time in minutes in the direct care of this critically ill patient, excluding procedure time. ED Disposition Clinical Impression: Cellulitis of left leg, Homeless Disposition: DC-01 TO HOME OR SELFCARE Is pt being admited?: No Does the pt Need Aspirin: No Condition: Stable Instructions: Cellulitis (ED) Additional Instructions: Complete antibiotics as prescribed. Decrease your sodium intake. Increase your water intake. Elevate your legs. Try to avoid walking too much in the heat as this can exacerbate the swelling. Follow-up with your primary care provider. Prescriptions: Sulfamethoxazole/Trimethoprim [Bactrim DS TAB] 1 each PO BID 7 Days #14 tablet Referrals: PRIMARY CARE, [Primary Care Provider] - 3-5 Days
== END 2020-05-29 04:03 | disposition home or self-care (01) ==
LOC: ED 23:46
DX: L03.116 Cellulitis of left lower limb (principal); I10 Essential (primary) hypertension; K21.9 Gastro-esophageal reflux disease without esophagitis; M13.88 Other specified arthritis, other site; J44.9 Chronic obstructive pulmonary disease, unspecified; F17.200 Nicotine dependence, unspecified, uncomplicated; F12.10 Cannabis abuse, uncomplicated; Z79.899 Other long term (current) drug therapy; Z59.0 Homelessness; Z88.0 Allergy status to penicillin
CPT/HCPCS: 99282

== ENCOUNTER 2020-07-08 17:59 | Emergency (ER) | payer SELFPAY ==
[2020-07-08 18:07] VITALS: BP 134/74
--- NOTE | 2020-07-08 18:41 | Event Note ---
ED Screening Note ED Screening Note: low back pain 3-4 weeks no fall or injury no numbness, unilateral weakness, bowel or bladder incontinence left sided chest pain for 3-4 weeks occasionally sharp pain abd pain and "abdomen swelling" 2-3 weeks no n/v/d +subjective fever PMHx COPD, cirrhosis allergy: penicillin, aspirin This initial assessment/diagnostic orders/clinical plan/treatment(s) is/are subject to change based on patients health status, clinical progression and re- assessment by fellow clinical providers in the ED. Further treatment and workup at subsequent clinical providers discretion. Patient/guardian urged not to elope from the ED as their condition may be serious if not clinically assessed and managed. Initial orders include: labs, ekg, xr
[2020-07-08 19:43] LABS: Basophils % (Auto) 0.4 % (0.0-1.8); Eosinophils # (Auto) 0.1 K/mm3 (0.0-0.4); Eosinophils % (Auto) 3.3 % (0.0-4.3); Hematocrit 32.8 % (35.5-45.6); Hemoglobin 11.2 gm/dl (11.8-15.2); Lymphocytes # (Auto) 0.7 K/mm3 (1.2-5.4); Lymphocytes % (Auto) 22.9 % (13.4-35.0); Mean Corpuscular HGB Conc 34 % (32-34); Mean Corpuscular Volume 103 fl (84-94); Monocytes # (Auto) 0.4 K/mm3 (0.0-0.8); Monocytes % (Auto) 13.6 % (0.0-7.3); Red Blood Count 3.18 M/mm3 (3.65-5.03); Red Cell Distribution Width 16.9 % (13.2-15.2)
[2020-07-08 19:45] LABS: Platelet Count 83 K/mm3 (140-440)
[2020-07-08 19:50] LABS: INR 1.8 (0.87-1.13)
[2020-07-08 19:52] LABS: Alanine Aminotransferase 53 units/L (7-56); Albumin 2.6 g/dL (3.9-5); BUN/Creatinine Ratio 11; Blood Urea Nitrogen 8 mg/dL (9-20); Calcium 8.2 mg/dL (8.4-10.2); Hemolysis Index 32
--- NOTE | 2020-07-08 20:02 | XRay Report ---
CHEST 2 VIEWS INDICATION / CLINICAL INFORMATION: CP. COMPARISON: 11/09/2018 FINDINGS: SUPPORT DEVICES: None. HEART / MEDIASTINUM: No significant abnormality. LUNGS / PLEURA: No significant pulmonary or pleural abnormality. No pneumothorax or pleural effusion. ADDITIONAL FINDINGS: No significant additional findings. IMPRESSION: 1. No acute findings. Signer Name: Niko Kumar MD Signed: 07/08/2020 7:58 PM Workstation Name: [id number]
--- NOTE | 2020-07-08 20:04 | XRay Report ---
ABDOMEN 2 VIEWS INDICATION / CLINICAL INFORMATION: abd pain. COMPARISON: None available. FINDINGS: TUBES / LINES: None. BOWEL GAS PATTERN: Nonobstructive bowel gas pattern. Abundant fecal material noted throughout the lar ge bowel and rectal vault. FREE AIR / EXTRALUMINAL GAS: None seen. ADDITIONAL FINDINGS: Cholelithiasis. CHEST: Visualized chest shows no significant abnormality. IMPRESSION: 1. Abundant fecal material noted throughout the large bowel and rectal vault. Correlate for clinical symptoms of constipation. 2. Cholelithiasis 3. Nonobstructive bowel gas pattern. Signer Name: Niko Kumar MD Signed: 07/08/2020 8:00 PM Workstation Name: [id number]
[2020-07-08] MEDS ORDERED: oxyCODONE 5 MG TAB PO ONE (20:32)
--- NOTE | 2020-07-08 21:09 | Emergency Department Report ---
<ANA PAULA - Last Filed: 07/08/20 22:00> ED General Adult HPI - General Chief complaint: Pain General Stated complaint: BODY PAIN Time Seen by Provider: 07/08/20 18:38 Source: patient Mode of arrival: Wheelchair Limitations: No Limitations - History of Present Illness Initial comments: pt is a 65 yo male who presents to the ED with c/o low back pain 3-4 weeks. he denies any fall or injury. he denies any numbness, unilateral weakness, bowel or bladder incontinence. he also has left sided chest pain for 3-4 weeks. he states that it feels like an occasionally sharp pain. he states that he also has abd pain and "abdomen swelling" 2-3 weeks. he denies any n/v/d. states that he had a subjective fever two weeks ago. he denies any melena, hematochezia, hematemesis. He states he is having normal bowel movements.PMHx COPD, cirrhosis. allergy: penicillin, aspirin. Severity scale (0 -10): 10 - Related Data Home Medications Medication Instructions Recorded Confirmed Last Taken Gabapentin 600 mg PO BID 18 08/03/18 Unknown HCTZ 25 mg PO DAILY 08/03/18 08/03/18 Unknown Previous Rx's Medication Instructions Recorded Last Taken Type Folic Acid [Folvite] 1 mg PO QDAY #30 tablet 08/10/18 Unknown Rx Thiamine [Vitamin B-1] 100 mg PO QDAY #30 tablet 08/10/18 Unknown Rx Acetaminophen/Codeine [Tylenol 1 tab PO Q6H PRN #12 tab 11/09/18 Unknown Rx /Codeine # 3 tab] Albuterol Sulfate [Ventolin HFA] 2 puff IH Q4H PRN #1 hfa.aer.ad 11/09/18 Unknown Rx Azithromycin [Zithromax Z-KENNETH] 1 dose PO DAILY 5 Days tab 11/09/18 Unknown Rx Benzonatate [Tessalon Perles] 100 mg PO Q8HR PRN #30 capsule 11/09/18 Unknown Rx predniSONE [Deltasone] 40 mg PO QDAY 5 Days tab 11/09/18 Unknown Rx Clindamycin [Clindamycin CAP] 300 mg PO QID #20 capsule 12/30/18 Unknown Rx Tylenol /Codeine # 3 tab 1 tab PO Q6H PRN #12 12/30/18 Unknown Rx Sulfamethoxazole/Trimethoprim 1 each PO BID 7 Days #14 tablet 05/29/20 Unknown Rx [Bactrim DS TAB] Lactulose 10 gm PO DAILY #150 ml 07/08/20 Unknown Rx methOCARBAMOL [Robaxin TAB] 500 mg PO BID PRN #20 tab 07/08/20 Unknown Rx Allergies Allergy/AdvReac Type Severity Reaction Status Date / Time aspirin Allergy Hives Verified 08/03/18 23:26 Penicillins Allergy Itching Verified 08/03/18 23:26 ED Review of Systems Comment: All other systems reviewed and negative ED Past Medical Hx - Past Medical History Previous Medical History?: Yes Hx Hypertension: Yes Hx Congestive Heart Failure: No Hx Diabetes: No Hx GERD: Yes Hx Arthritis: Yes Hx Psychiatric Treatment: Yes (alcohol abuse) Hx Asthma: No Hx COPD: Yes Hx HIV: No Additional medical history: Chronic Cellulitis left lower leg - Social History Smoking Status: Current Every Day Smoker Substance Use Type: Alcohol - Medications Home Medications: Home Medications Medication Instructions Recorded Confirmed Last Taken Type Gabapentin 600 mg PO BID 08/03/18 08/03/18 Unknown History HCTZ 25 mg PO DAILY 08/03/18 08/03/18 Unknown History Folic Acid [Folvite] 1 mg PO QDAY #30 tablet 08/10/18 Unknown Rx Thiamine [Vitamin B-1] 100 mg PO QDAY #30 tablet 08/10/18 Unknown Rx Acetaminophen/Codeine [Tylenol 1 tab PO Q6H PRN #12 tab 11/09/18 Unknown Rx /Codeine # 3 tab] Albuterol Sulfate [Ventolin HFA] 2 puff IH Q4H PRN #1 hfa.aer.ad 11/09/18 Unknown Rx Azithromycin [Zithromax Z-KENNETH] 1 dose PO DAILY 5 Days tab 11/09/18 Unknown Rx Benzonatate [Tessalon Perles] 100 mg PO Q8HR PRN #30 capsule 11/09/18 Unknown Rx predniSONE [Deltasone] 40 mg PO QDAY 5 Days tab 11/09/18 Unknown Rx Clindamycin [Clindamycin CAP] 300 mg PO QID #20 capsule 12/30/18 Unknown Rx Tylenol /Codeine # 3 tab 1 tab PO Q6H PRN #12 12/30/18 Unknown Rx Sulfamethoxazole/Trimethoprim 1 each PO BID 7 Days #14 tablet 05/29/20 Unknown Rx [Bactrim DS TAB] Lactulose 10 gm PO DAILY #150 ml 07/08/20 Unknown Rx methOCARBAMOL [Robaxin TAB] 500 mg PO BID PRN #20 tab 07/08/20 Unknown Rx ED Physical Exam - General Limitations: No Limitations General appearance: alert, in no apparent distress - Head Head exam: Present: atraumatic, normocephalic - Eye Eye exam: Present: normal appearance - ENT ENT exam: Present: mucous membranes moist - Neck Neck exam: Present: normal inspection, full ROM. Absent: tenderness - Respiratory Respiratory exam: Present: normal lung sounds bilaterally. Absent: respiratory distress, wheezes, rales, rhonchi, stridor, chest wall tenderness, accessory muscle use, decreased breath sounds, prolonged expiratory - Cardiovascular Cardiovascular Exam: Present: regular rate, normal rhythm, normal heart sounds. Absent: systolic murmur, diastolic murmur, rubs, gallop - GI/Abdominal GI/Abdominal exam: Present: soft, normal bowel sounds. Absent: distended, tenderness, guarding, rebound, rigid - Back Exam Back exam: Present: normal inspection, full ROM, paraspinal tenderness (lumbar paraspinal muscular ttp, no midline C-spine, T-spine, L-spine ttp, no step offs, no deformities). Absent: vertebral tenderness - Neurological Exam Neurological exam: Present: alert, oriented X3, CN II-XII intact, normal gait. Absent: motor sensory deficit - Psychiatric Psychiatric exam: Present: normal affect, normal mood - Skin Skin exam: Present: warm, dry, intact ED Medical Decision Making - Lab Data Result diagrams: 07/08/20 19:09 07/08/20 19:09 Lab Results 07/08/20 07/08/20 07/08/20 Range/Units 19:09 19:09 19:09 WBC 3.1 L (4.5-11.0) K/mm3 RBC 3.18 L (3.65-5.03) M/mm3 Hgb 11.2 L (11.8-15.2) gm/dl Hct 32.8 L (35.5-45.6) % MCV 103 H (84-94) fl MCH 35 H (28-32) pg MCHC 34 (32-34) % RDW 16.9 H (13.2-15.2) % Plt Count 83 L (140-440) K/mm3 Lymph % (Auto) 22.9 (13.4-35.0) % [place] % (Auto) 13.6 H (0.0-7.3) % Eos % (Auto) 3.3 (0.0-4.3) % Baso % (Auto) 0.4 (0.0-1.8) % Lymph # 0.7 L (1.2-5.4) K/mm3 [place] # 0.4 (0.0-0.8) K/mm3 Eos # 0.1 (0.0-0.4) K/mm3 Baso # 0.0 (0.0-0.1) K/mm3 Seg Neutrophils % 59.8 (40.0-70.0) % Seg Neutrophils # 1.9 (1.8-7.7) K/mm3 PT 21.1 H (12.2-14.9) Sec. INR 1.80 H (0.87-1.13) APTT 38.0 H (24.2-36.6) Sec. Sodium 136 L (137-145) mmol/L Potassium 4.4 (3.6-5.0) mmol/L Chloride 104.1 (98-107) mmol/L Carbon Dioxide 23 (22-30) mmol/L Anion Gap 13 mmol/L BUN 8 L (9-20) mg/dL Creatinine 0.7 L (0.8-1.3) mg/dL Estimated GFR > 60 ml/min BUN/Creatinine Ratio 11 % Glucose 90 (75-100) mg/dL Calcium 8.2 L (8.4-10.2) mg/dL Total Bilirubin 1.60 H (0.1-1.2) mg/dL AST 96 H (5-40) units/L ALT 53 (7-56) units/L Alkaline Phosphatase 137 H (35-129) units/L Ammonia (25-60) umol/L Troponin T < 0.010 (0.00-0.029) ng/mL Total Protein 7.2 (6.3-8.2) g/dL Albumin 2.6 L (3.9-5) g/dL Albumin/Globulin Ratio 0.6 % 07/08/20 Range/Units 19:09 WBC (4.5-11.0) K/mm3 RBC (3.65-5.03) M/mm3 Hgb (11.8-15.2) gm/dl Hct (35.5-45.6) % MCV (84-94) fl MCH (28-32) pg MCHC (32-34) % RDW (13.2-15.2) % Plt Count (140-440) K/mm3 Lymph % (Auto) (13.4-35.0) % [place] % (Auto) (0.0-7.3) % Eos % (Auto) (0.0-4.3) % Baso % (Auto) (0.0-1.8) % Lymph # (1.2-5.4) K/mm3 [place] # (0.0-0.8) K/mm3 Eos # (0.0-0.4) K/mm3 Baso # (0.0-0.1) K/mm3 Seg Neutrophils % (40.0-70.0) % Seg Neutrophils # (1.8-7.7) K/mm3 PT (12.2-14.9) Sec. INR (0.87-1.13) APTT (24.2-36.6) Sec. Sodium (137-145) mmol/L Potassium (3.6-5.0) mmol/L Chloride (98-107) mmol/L Carbon Dioxide (22-30) mmol/L Anion Gap mmol/L BUN (9-20) mg/dL Creatinine (0.8-1.3) mg/dL Estimated GFR ml/min BUN/Creatinine Ratio % Glucose (75-100) mg/dL Calcium (8.4-10.2) mg/dL Total Bilirubin (0.1-1.2) mg/dL AST (5-40) units/L ALT (7-56) units/L Alkaline Phosphatase (35-129) units/L Ammonia 40.0 (25-60) umol/L Troponin T (0.00-0.029) ng/mL Total Protein (6.3-8.2) g/dL Albumin (3.9-5) g/dL Albumin/Globulin Ratio % - EKG Data EKG shows normal: sinus rhythm, axis, intervals, QRS complexes, ST-T waves Rate: normal - Radiology Data Radiology results: report reviewed, image reviewed ABDOMEN 2 VIEWS INDICATION / CLINICAL INFORMATION: abd pain. COMPARISON: None available. FINDINGS: TUBES / LINES: None. BOWEL GAS PATTERN: Nonobstructive bowel gas pattern. Abundant fecal material noted throughout the large bowel and rectal vault. FREE AIR / EXTRALUMINAL GAS: None seen. ADDITIONAL FINDINGS: Cholelithiasis. CHEST: Visualized chest shows no significant abnormality. IMPRESSION: 1. Abundant fecal material noted throughout the large bowel and rectal vault. Correlate for clinical symptoms of constipation. 2. Cholelithiasis 3. Nonobstructive bowel gas pattern. Signer Name: Niko Yang MD Signed: 07/08/2020 8:00 PM Workstation Name: [id number] Transcribed By: Dictated By: NIKO YANG Electronically Authenticated By: NIKO YANG Signed Date/Time: 07/08/201999 DD/ 57 TD/TT: Chest x-ray no acute findings - Medical Decision Making pt is a 65 yo male who presents to the ED with c/o low back pain 3-4 weeks. he denies any fall or injury. he denies any numbness, unilateral weakness, bowel or bladder incontinence. he also has left sided chest pain for 3-4 weeks. he states that it feels like an occasionally sharp pain. he states that he also has abd pain and "abdomen swelling" 2-3 weeks. he denies any n/v/d. states that he had a subjective fever two weeks ago. he denies any melena, hematochezia, hematemesis. He states he is having normal bowel movements.PMHx COPD, cirrhosis. allergy: penicillin, aspirin. VSS. No abdominal tenderness to palpation in exam, no signs of ascites today. No midline tenderness to palpation, no step-offs, no deformities, no neurological deficits. Labs show pancytopenia, elevated coagulation factors, elevated AST, mildly elevated bilirubin. Troponin is negative. EKG is within normal limits. abdominal XR: 1. Abundant fecal material noted throughout the large bowel and rectal vault. Correlate for clinical symptoms of constipation. 2. Cholelithiasis 3. Nonobstructive bowel gas pattern. Chest x-ray no acute findings. discussed case with Dr. Chacon, who reviewed pts results and evaluated pt at bedside, advised that these findings and complaints are likely chronic in nature, advised to have pt follow up with GI and PCP. pt given prescription for robaxin and lactulose. advised pt Please take medication as prescribed. Please increase your water intake. Please avoid alcohol use or NSAIDs such as ibuprofen or Tylenol. Please follow-up with a primary care doctor. Please follow-up with a GI doctor. Return to emergency room immediately for any new or worsening symptoms. ED Disposition Clinical Impression: Abdominal pain Qualifiers: Abdominal location: generalized Qualified Code(s): R10.84 - Generalized abdominal pain Chronic pain Qualifiers: Chronic pain type: other chronic pain Qualified Code(s): G89.29 - Other chronic pain Back pain Qualifiers: Back pain location: low back pain Chronicity: acute Back pain laterality: bilateral Sciatica presence: without sciatica Qualified Code(s): M54.5 - Low back pain Disposition: TO HOME OR SELFCARE Is pt being admited?: No Does the pt Need Aspirin: No Condition: Stable Instructions: Constipation (ED), Cirrhosis (ED), High Fiber Diet (ED), Low Back Strain (ED), Abdominal Pain (ED) Additional Instructions: Please take medication as prescribed. Please increase your water intake. Please avoid alcohol use or NSAIDs such as ibuprofen or Tylenol. Please follow- up with a primary care doctor. Please follow-up with a GI doctor. Return to emergency room immediately for any new or worsening symptoms. Prescriptions: Lactulose 10 gm PO DAILY #150 ml methOCARBAMOL [Robaxin TAB] 500 mg PO BID PRN #20 tab PRN Reason: pain [facility] [Primary Care Provider] - 2-3 Days BRISEIDA IVY MD [Staff Physician] - 2-3 Days [facility] [Outside] - 2-3 Days [facility] [Provider Group] - 2-3 Days Time of Disposition: 21:07 Print Language: PASHTO <GEE CHACON III - Last Filed: 07/09/20 02:02> ED Review of Systems ROS: Stated complaint: BODY PAIN Other details as noted in HPI ED Course Vital Signs 07/08/20 07/08/20 18:05 21:20 Temperature 97.9 F Pulse Rate 75 77 Respiratory 20 17 Rate Blood Pressure 134/74 O2 Sat by Pulse 99 97 Oximetry - Reevaluation(s) Reevaluation #1: I reviewed the findings and management of this patient in real-time and I have personally seen and examined this patient and participated in the decision making for this patient with the midlevel. Patient is a 65-year-old male that presents emergency room with multiple complaints of pain. Patient pain appears to be chronic. Patient had labs done. Patient has lab abnormalities. Nothing that requires in-hospital care. Patient stable for discharge. Patient to be discharged home to follow-up with his primary care and other outpatient physici ans. I examined the patient and patient's lung sounds are clear, normal CV exam, chest wall tenderness noted. Patient chest wall reproduces symptoms. Patient's back pain secondary to a back strain. I discussed all results and clinical findings with patient. I discussed plan of care with patient. Patient agrees with plan of care. Patient is stable for discharge. Patient will be discharged home. Patient given discharge instructions. Patient voiced understanding of discharge instructions. 07/08/20 20:50 ED Medical Decision Making - Lab Data Result diagrams: 07/08/20 19:09 07/08/20 19:09 Critical care attestation.: If time is entered above; I have spent that time in minutes in the direct care of this critically ill patient, excluding procedure time. ED Disposition Is pt being admited?: No Does the pt Need Aspirin: No
== END 2020-07-08 21:20 | disposition home or self-care (01) ==
LOC: ED 17:59
DX: R10.9 Unspecified abdominal pain (principal); M54.5 Low back pain; G89.29 Other chronic pain; I10 Essential (primary) hypertension; K21.9 Gastro-esophageal reflux disease without esophagitis; M19.90 Unspecified osteoarthritis, unspecified site; J44.9 Chronic obstructive pulmonary disease, unspecified; F17.200 Nicotine dependence, unspecified, uncomplicated; Z79.899 Other long term (current) drug therapy; Z88.0 Allergy status to penicillin; Z88.6 Allergy status to analgesic agent
CPT/HCPCS: 36415; 71046; 74019; 80053; 82140; 84484; 85025; 85610; 85730; 93005

== ENCOUNTER 2020-07-09 02:34 | Emergency (ER) | payer SELFPAY ==
[2020-07-09 02:59] VITALS: BP 115/69
--- NOTE | 2020-07-09 03:12 | Emergency Department Report ---
ED Back Pain/Injury HPI - General Chief Complaint: Back Pain/Injury Stated Complaint: LOWER BACK PAIN Time Seen by Provider: 07/09/20 03:08 Source: patient, EMS Mode of arrival: Ambulatory Limitations: No Limitations - History of Present Illness Initial Comments: Patient is a 65-year-old male that presents emergency room with complaints of back pain. Patient dates back pain started 8 weeks ago. Patient states his pain is worsening. Patient states he was seen here earlier and was discharged home. Patient dates he was given a prescription but does not believe he can afford it. Patient states he never went to the pharmacy to see the meek. Patient states the pain is unchanged. Patient states the pain is a 10 out of 10. Patient states the he is having financial problems right now. Patient states his abdominal pain and chest pain have resolved. Patient denies shortness of breath. Patient denies inability to walk. Patient states is able to walk but the pain just makes it difficult. Patient states his pain is better with rest and worse with movement. Patient denies recent travel. Patient denies recent international travel. Gela ent denies exposure to the novel coronavirus. Patient denies sick contacts. Patient denies fever and chills. Patient denies cough. Patient denies diarrhea. Patient denies coming in contact with anybody with symptoms of the novel coronavirus. Patient was seen here earlier and I actually saw the patient with our PA. Patient had labs and a full evaluation. I reviewed the labs and all diagnostic results with the patient again. Patient was prescribed Robaxin. Patient never picked up prescription. MD Complaint: back pain -: Gradual, week(s) Similar Symptoms Previously: Yes Place: home Radiation: none Severity: severe Severity scale (0 -10): 10 Quality: sharp Consistency: constant Improves With: supine Worsens With: movement, walking Context: bending Associated Symptoms: difficulty walking. denies: confusion, weakness, chest pain, numbness, cough, difficulty urinating, diaphoresis, incontinence, fever/chills, constipation, headaches, abdominal pain, loss of appetite, malaise, nausea/vomiting, rash, seizure, shortness of breath, syncope - Related Data Home Medications Medication Instructions Recorded Confirmed Last Taken Gabapentin 600 mg PO BID 08/03/18 08/03/18 Unknown HCTZ 25 mg PO DAILY 08/03/18 08/03/18 Unknown Previous Rx's Medication Instructions Recorded Last Taken Type Folic Acid [Folvite] 1 mg PO QDAY #30 tablet 08/10/18 Unknown Rx Thiamine [Vitamin B-1] 100 mg PO QDAY #30 tablet 08/10/18 Unknown Rx Acetaminophen/Codeine [Tylenol 1 tab PO Q6H PRN #12 tab 11/09/18 Unknown Rx /Codeine # 3 tab] Albuterol Sulfate [Ventolin HFA] 2 puff IH Q4H PRN #1 hfa.aer.ad 11/09/18 Unknown Rx Azithromycin [Zithromax Z-KENNETH] 1 dose PO DAILY 5 Days tab 11/09/18 Unknown Rx Benzonatate [Tessalon Perles] 100 mg PO Q8HR PRN #30 capsule 11/09/18 Unknown Rx predniSONE [Deltasone] 40 mg PO QDAY 5 Days tab 11/09/18 Unknown Rx Clindamycin [Clindamycin CAP] 300 mg PO QID #20 capsule 12/30/18 Unknown Rx Tylenol /Codeine # 3 tab 1 tab PO Q6H PRN #12 12/30/18 Unknown Rx Sulfamethoxazole/Trimethoprim 1 each PO BID 7 Days #14 tablet 05/29/20 Unknown Rx [Bactrim DS TAB] Lactulose 10 gm PO DAILY #150 ml 07/08/20 Unknown Rx methOCARBAMOL [Robaxin TAB] 500 mg PO BID PRN #20 tab 07/08/20 Unknown Rx Allergies Allergy/AdvReac Type Severity Reaction Status Date / Time aspirin Allergy Hives Verified 08/03/18 23:26 Penicillins Allergy Itching Verified 08/03/18 23:26 ED Review of Systems ROS: Stated complaint: LOWER BACK PAIN Other details as noted in HPI Constitutional: denies: chills, fever Eyes: denies: eye pain, eye discharge, vision change ENT: denies: ear pain, throat pain Respiratory: denies: cough, shortness of breath, wheezing Cardiovascular: denies: chest pain, palpitations Endocrine: no symptoms reported Gastrointestinal: denies: abdominal pain, nausea, diarrhea Genitourinary: denies: urgency, dysuria Musculoskeletal: back pain. denies: joint swelling, arthralgia Skin: denies: rash, lesions Neurological: denies: headache, weakness, paresthesias Psychiatric: denies: anxiety, depression Hematological/Lymphatic: denies: easy bleeding, easy bruising ED Past Medical Hx - Past Medical History Previous Medical History?: Yes Hx Hypertension: Yes Hx Congestive Heart Failure: No Hx Diabetes: No Hx GERD: Yes Hx Arthritis: Yes Hx Psychiatric Treatment: Yes (alcohol abuse) Hx Asthma: No Hx COPD: Yes Hx HIV: No Additional medical history: Chronic Cellulitis left lower leg - Surgical History Past Surgical History?: No - Family History Family history: no significant - Social History Smoking Status: Former Smoker Substance Use Type: Alcohol - Medications Home Medications: Home Medications Medication Instructions Recorded Confirmed Last Taken Type Gabapentin 600 mg PO BID 08/03/18 08/03/18 Unknown History HCTZ 25 mg PO DAILY 08/03/18 08/03/18 Unknown History Folic Acid [Folvite] 1 mg PO QDAY #30 tablet 08/10/18 Unknown Rx Thiamine [Vitamin B-1] 100 mg PO QDAY #30 tablet 08/10/18 Unknown Rx Acetaminophen/Codeine [Tylenol 1 tab PO Q6H PRN #12 tab 11/09/18 Unknown Rx /Codeine # 3 tab] Albuterol Sulfate [Ventolin HFA] 2 puff IH Q4H PRN #1 hfa.aer.ad 11/09/18 Unknown Rx Azithromycin [Zithromax Z-KENNETH] 1 dose PO DAILY 5 Days tab 11/09/18 Unknown Rx Benzonatate [Tessalon Perles] 100 mg PO Q8HR PRN #30 capsule 11/09/18 Unknown Rx predniSONE [Deltasone] 40 mg PO QDAY 5 Days tab 11/09/18 Unknown Rx Clindamycin [Clindamycin CAP] 300 mg PO QID #20 capsule 12/30/18 Unknown Rx Tylenol /Codeine # 3 tab 1 tab PO Q6H PRN #12 12/30/18 Unknown Rx Sulfamethoxazole/Trimethoprim 1 each PO BID 7 Days #14 tablet 05/29/20 Unknown Rx [Bactrim DS TAB] Lactulose 10 gm PO DAILY #150 ml 07/08/20 Unknown Rx methOCARBAMOL [Robaxin TAB] 500 mg PO BID PRN #20 tab 07/08/20 Unknown Rx ED Physical Exam - General Limitations: Physical Limitation General appearance: alert, in no apparent distress - Head Head exam: Present: atraumatic, normocephalic - Eye Eye exam: Present: normal appearance, PERRL Pupils: Present: normal accommodation - ENT ENT exam: Present: mucous membranes moist - Neck Neck exam: Present: normal inspection - Respiratory Respiratory exam: Present: normal lung sounds bilaterally. Absent: respiratory distress - Cardiovascular Cardiovascular Exam: Present: regular rate, normal rhythm. Absent: systolic murmur, diastolic murmur, rubs, gallop - GI/Abdominal GI/Abdominal exam: Present: soft, normal bowel sounds - Rectal Rectal exam: Present: deferred - Extremities Exam Extremities exam: Present: normal inspection - Back Exam Back exam: Present: normal inspection, full ROM, muscle spasm. Absent: tenderness - Neurological Exam Neurological exam: Present: alert, oriented X3 - Psychiatric Psychiatric exam: Present: normal affect, normal mood - Skin Skin exam: Present: warm, dry, intact, normal color. Absent: rash ED Course Vital Signs 07/09/20 02:56 Temperature 97.9 F Pulse Rate 89 Respiratory 18 Rate Blood Pressure 115/69 O2 Sat by Pulse 100 Oximetry - Reevaluation(s) Reevaluation #1: I discussed all results and clinical findings with patient. I discussed plan of care with patient. Patient agrees with plan of care. Patient is stable for discharge. Patient will be discharged home. Patient given discharge instructions. Patient voiced understanding of discharge instructions. 07/09/20 03:11 ED Medical Decision Making - Medical Decision Making Patient is 65-year-old male that presents emergency room for back pain. Patient was seen earlier today and discharged home. Patient is medically cleared. Patient will need to follow-up with orthopedist and his primary care. Patient will also need to pickle processor his Robaxin prescription. Patient given Solu-Medrol 80 mg in order to try to decrease the patient's pain. Patient is medically cleared. Patient does not require any further emergency room services. - Differential Diagnosis Back injury, back pain, chronic pain. Critical care attestation.: If time is entered above; I have spent that time in minutes in the direct care of this critically ill patient, excluding procedure time. ED Disposition Clinical Impression: Back pain Qualifiers: Back pain location: low back pain Chronicity: chronic Back pain laterality: bilateral Sciatica presence: without sciatica Qualified Code(s): M54.5 - Low back pain Chronic pain Qualifiers: Chronic pain type: chronic pain syndrome Qualified Code(s): G89.4 - Chronic p ain syndrome Disposition: TO HOME OR SELFCARE Is pt being admited?: No Does the pt Need Aspirin: No Condition: Stable Instructions: Muscle Spasm (ED), Chronic Back Pain (ED) Additional Instructions: Patient to start Robaxin. Patient to pickle processor prescription. Patient to follow- up with primary care in 2 to 3 days. Patient to follow-up with Ortho in 2 to 3 days. Patient to rest. Patient to increase water. Patient to avoid strenuous exercise or heavy lifting until cleared by orthopedist. Patient to take meds as directed. Patient to return to the ER if condition worsens, changes or new symptoms arise. Referrals: PRIMARY MD QIANA [Primary Care Provider] - 2-3 Days CLAUDY DAWKINS MD [Staff Physician] - 2-3 Days Time of Disposition: 03:14
[2020-07-09] MEDS ORDERED: methylPREDNISolone Sod Succinate 40 MG/1 ML INJ IM ONE (03:13)
== END 2020-07-09 03:35 | disposition home or self-care (01) ==
LOC: ED 02:34
DX: M54.5 Low back pain (principal); G89.29 Other chronic pain; I10 Essential (primary) hypertension; K21.9 Gastro-esophageal reflux disease without esophagitis; J44.9 Chronic obstructive pulmonary disease, unspecified; M13.88 Other specified arthritis, other site; Z88.6 Allergy status to analgesic agent; Z88.0 Allergy status to penicillin; Z87.891 Personal history of nicotine dependence; Z79.899 Other long term (current) drug therapy
CPT/HCPCS: 96372; 99281; J2920